=== PATIENT | female | born 1950 | race African-American/Black ===

== ENCOUNTER 2016-04-26 06:04 | Inpatient (IN) | payer OTHER ==
[2016-04-26] VITALS (24 sets, daily range): BP systolic 71–148; BP diastolic 39–72; PULSE 58–78; RESP 10–20; Ht 154.9 cm; Wt 55.9 kg
[~2016-04-26] VITALS: Ht 154.9 cm; Wt 55.9 kg
[~2016-04-26 06:04] MED LIST: ASPI-664 PO; BENA10TA48 PO; CARI350T29 PO; HYD25 PO
[2016-04-26] MEDS ORDERED: CEFAZOLIN 2 GM/50 ML (PMX) 50 ML IVPB ONE (06:30)
[2016-04-26] MEDS ORDERED: metroNIDAZOLE 500 MG/NS (PMX) 100 ML IVPB ONE ×2 (07:00→09:10)
[2016-04-26] MEDS ORDERED: D5-NS + KCL 20 MEQ 1,000 ML IV SCH (07:00)
[2016-04-26] MEDS ORDERED: METHYLENE BLUE 10 MG/ML VIAL ONE (07:12)
[2016-04-26] MEDS ORDERED: VASOPRESSIN 20 UNITS INJ ONE (07:12)
--- NOTE | 2016-04-26 07:13 | HPN ---
Date/Time of Note Date/Time of Note DATE: 04/26/16 TIME: 07:11 Interval H&P Admission Note Pt. seen H&P reviewed: No system changes JAMILAH FERRO MD Apr 26, 2016 07:12
[2016-04-26] MEDS ORDERED: ROCURONIUM 50 MG INJ ONE (07:51)
[2016-04-26] MEDS ORDERED: PROPOFOL 100 ML ONE (07:51)
[2016-04-26] MEDS ORDERED: MIDAZOLAM 1 MG/ML 2 ML INJ ONE (07:52)
[2016-04-26] MEDS ORDERED: HYDR-906 PO (08:02)
[2016-04-26] MEDS ORDERED: BACTDS PO (08:02)
[2016-04-26] MEDS ORDERED: QUET100T PO (08:02)
[2016-04-26] MEDS ORDERED: CLON-339 PO (08:02)
[2016-04-26] MEDS ORDERED: PHENYLephrine (100 MCG/ML) 5ML SYG ONE ×2 (08:27→09:09)
--- NOTE | 2016-04-26 08:29 | HP ---
Date/Time of Note Date/Time of Note DATE: 04/26/16 TIME: 08:29 Assessment/Plan VTE Prophylaxis VTE Prophylaxis Intervention: SCD's Lines/Catheters IV Catheter Type (from Nrs): Peripheral IV HPI/ROS Admit Date/Time Admit Date/Time Apr 26, 2016 at 06:04 Hx of Present Illness Jamilah Ferro M.D. 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 Past Medical History: HTN,Arthritis Surgical:Back Surgery Last Mammogram: 03/23/2016 Last Pap Smear: 03/11/2016 G 6 P 4 Ab 2 x 4 Medications: 04/15/16 aspirin 81 mg tablet,delayed release 1 tablet by mouth DAILY; stopped 2 wk ago 04/15/16 benazepril 20 mg-hydrochlorothiazide 25 mg tablet 1 tablet by mouth DAILY 04/15/16 clonidine HCl 0.1 mg tablet 1 tablet by mouth DAILY 04/15/16 losartan 25 mg tablet 1 tablet by mouth DAILY Flu no, declined, Pneumococcal no, declined Colonoscopy: never Allergies: No active allergies recorded Family History: Noncontributory Social History: Noncontributory Review of Systems: Negative except for above noted Physical Examination Vitals (04/15/2016): Weight 134, Height 62, BP 148/70, BMI 24.5. General: Alert. HEENT: Pupils are equal, round, reactive to light and accommodation. Neck: Supple with no masses of lymphadenopathy. Breast: Deferred due to recent examination and responsibility of primary care physician. Chest: Clear to auscultation and percussion with no rales, ronchi, or wheeze. Heart: Normal rhythm with no murmur. Abdominal exam: nontender, nondistended, no masses, no ascites. Pelvic exam: cervix 3 cm friable with no parametrial nodularity, no masses or cul-de-sac nodularity noted and no vaginal lesion Rectal: confirmatory with pelvic exam. Neurological: Grossly intact Assessment: Cervical cancer clinically stage IB2 Plan: Plan: Laparoscopic hysterectomy type 3 with BSO, pelvic and aortic LND. All risks and benefits of this procedure have been discussed in detail with the patient, as well as alternative treatment strategies and their implications. The patient is aware that there is some possibility of a blood transfusion and its associated risks and benefits. She wishes to proceed and gives her informed consent. Jamilah Ferro M.D. PMH/Family/Social Social History Smoking Status: Heavy tobacco smoker Exam/Review of Systems Vital Signs Vitals Vital Signs Date Time Temp Pulse Resp B/P Pulse Ox O2 Delivery O2 Flow Rate FiO2 04/26/16 07:51 97.6 75 18 109/48 97 Medications Medications Current Medications Potassium Chloride/Dextrose/ Sod Cl (D5-NS + KCl 20 Meq) 1,000 ml @ 100 mls/hr Q10H IV ; Start 04/26/16 at 07:00; Stop 04/26/16 at 16:59 JAMILAH FERRO MD Apr 26, 2016 08:29
[2016-04-26] MEDS ORDERED: THROMBIN 5000 UNIT VIAL ONE (09:00)
[2016-04-26] MEDS ORDERED: CEFAZOLIN 1 GM INJ ONE (09:10)
[2016-04-26] MEDS ORDERED: HETASTARCH 6% NACL 500 ML ONE (09:10)
[2016-04-26] MEDS ORDERED: morphine SULFATE/PF (10 MG/10 ML) INJ ONE (09:11)
[2016-04-26] MEDS ORDERED: ROPIVACAINE 0.2% 20 ML VIAL ONE (09:11)
[2016-04-26] MEDS ORDERED: ALBUMIN HUMAN 5% 250 ML IV PRN (10:30)
[2016-04-26] MEDS ORDERED: NALOXONE (0.4 MG/ML) INJ IV PRN ×2 (10:30→23:30)
[2016-04-26] MEDS ORDERED: ONDANSETRON 4 MG INJ IV PRN ×3 (10:30→23:30)
[2016-04-26] MEDS ORDERED: DIPHENHYDRAMINE 50 MG INJ IV PRN ×3 (10:30→23:30)
[2016-04-26] MEDS ORDERED: NALBUPHINE HCL (10 MG/1 ML) INJ IV PRN ×2 (10:30→23:30)
[2016-04-26] MEDS ORDERED: EPHEDrine SULFATE 50 MG/5 ML SYG IV PRN (10:30)
[2016-04-26] MEDS ORDERED: LABETALOL HCL 20MG INJ IV PRN (10:30)
[2016-04-26] MEDS ORDERED: HYDROmorphONE (0.2 MG/ML) 10ML SYG IV PRN ×3 (10:30)
[2016-04-26] MEDS ORDERED: morphine (1 MG/ML) 10ML SYRINGE IV PRN ×3 (10:30)
[2016-04-26] MEDS ORDERED: hydrALAzine 20 MG INJ IV PRN (10:30)
[2016-04-26] MEDS ORDERED: DEXAMETHASONE 4 MG/ML 1 ML INJ ONE (10:36)
[2016-04-26] MEDS ORDERED: FAMOTIDINE 20 MG INJ ONE (10:36)
[2016-04-26] MEDS ORDERED: ONDANSETRON 4 MG INJ ONE (10:36)
[2016-04-26] MEDS ORDERED: METOCLOPRAMIDE 10 MG INJ ONE (10:36)
[2016-04-26] MEDS: KETOROLAC 15 MG INJ IV SCH ×2 (13:30→19:30)
[2016-04-26] MEDS ORDERED: HYDROCODONE/APAP (5/325) TAB PO PRN (13:30)
[2016-04-26] MEDS: CEFAZOLIN 1 GM/50 ML (PMX) 50 ML IVPB SCH ×2 (14:54→22:53)
[2016-04-26] MEDS: D5-LR + KCL 20 MEQ 1,000 ML IV SCH ×2 (15:49→23:30)
[2016-04-26] MEDS ORDERED: HYDROmorphONE 1 MG/ML SYG IV PRN ×4 (17:00→23:30)
[2016-04-26] MEDS ORDERED: morphine 2 MG INJ IV PRN (17:00)
--- NOTE | 2016-04-26 20:50 | CONS ---
DATE OF ADMISSION: 04/26/2016 DATE OF CONSULTATION: 04/26/2016 REASON FOR CONSULTATION: Medical management. HISTORY OF PRESENT ILLNESS: The patient is a 66-year-old female with a history of hypertension, art hritis. The patient was recently diagnosed with cervical cancer and is now status post laparoscopic hysterectomy type 3 with bilateral salpingo-oophorectomy. Patient is lethargic at this time, as sh e is postoperative and is unable to provide any history. History is obtained from medical documenta tion. PAST MEDICAL HISTORY: As per HPI. HOME MEDICATIONS: 1. Aspirin. 2. Benazepril. 3. Soma. 4. Hydrochlorothiazide. 5. [place]. 6. Seroquel. 7. Bactrim. 8. Clonidine. ALLERGIES: NO KNOWN DRUG ALLERGIES. FAMILY HISTORY: Unknown. SOCIAL HISTORY: Unknown. REVIEW OF SYSTEMS: Cannot obtain, as patient is lethargic. PHYSICAL EXAMINATION: VITAL SIGNS: Temperature is 98.4, pulse 61, respiration is 18, BP is 111/51, saturation 99%. GENERAL: Lethargic. HEENT: Normocephalic, atraumatic. LUNGS: Clear to auscultation. CARDIOVASCULAR: Regular rate and rhythm. ABDOMEN: Soft. Nondistended. EXTREMITIES: No clubbing, cyanosis, or edema. LABORATORIES: Not available at this time. ASSESSMENT AND PLAN: 1. Several cancers, status post laparoscopic hysterectomy with bilateral salpingo-oophorectomy, pos top day #0. Patient is currently lethargic, with pain medications. 2. History of hypertension. The patient's blood pressure is currently low. We will hold all home medications at this time. We will resume in the a.m. if blood pressure continues to be elevated. 3. Osteoarthritis. Pain control. 4. Prophylaxis: Sequential compression devices. Dictated By: ALKA ROBLES MD BS/NTS Conf#: [id number] DID#: [id number]
[2016-04-26] MEDS ORDERED: NALOXONE (0.4 MG/ML) INJ ONE (23:00)
[2016-04-26] MEDS ORDERED: NALOXONE (0.4 MG/ML) INJ IV ONE (23:30)
[2016-04-27] VITALS (46 sets, daily range): BP systolic 72–156; BP diastolic 42–92; PULSE 70–98; RESP 9–31
[2016-04-27] MEDS ORDERED: SOD CHLORIDE 0.9% 250 ML IV ONE (00:10)
[2016-04-27] MEDS ORDERED: SOD CHLORIDE 0.9% 1,000 ML IV ONE (01:00)
[2016-04-27 01:07] LABS: AADO2 Arterial 60.4 mmHg (7.0-24.0); Allen Test ACCEPTAB; Arterial Base Excess -5.6 mmol/L (-3.0-3); Arterial COHb 0.3 % (0.0-3.0); Arterial Fraction of Oxyhgb 91.5 % (93.0-99.0); Arterial HCO3 21.1 mmol/L (22.0-26.0); Arterial MetHb 0.3 % (0.0-1.5); Arterial Total Hemglobin 8.5 g/dl (12.0-18.0); MODE NASAL CANNULA
[2016-04-27 01:22] LABS: BASOPHILS % 0.1 % (0.0-2.0); HEMOGLOBIN 7.8 g/dl (12.0-16.0); LYMPHOCYTES # 0.8 10^3/ul (0.8-2.9); LYMPHOCYTES % 12.1 % (15.0-51.0); MEAN CORPUSCULAR HEMOGLOBIN 33.6 pg (29.0-33.0); MEAN CORPUSCULAR HGB CONC 32.6 g/dl (32.0-37.0); MEAN CORPUSCULAR VOLUME 102.9 fl (82.0-101.0); MEAN PLATELET VOLUME 10.6 fl (7.4-10.4); MONOCYTE # 0.9 10^3/ul (0.3-0.9); MONOCYTES % 13.7 % (0.0-11.0); NEUTROPHIL # 4.8 10^3/ul (1.6-7.5); NEUTROPHILS % 74.1 % (39.0-77.0); PLATELET COUNT 157 10^3/UL (140-440); RED BLOOD COUNT 2.34 10^6/ul (4.20-5.40); RED CELL DISTRIBUTION WIDTH 14.1 % (11.5-14.5); UNCORRECTED WBC 6.4 10^3/ul (4.8-10.8); WHITE BLOOD COUNT 6.4 10^3/ul (4.8-10.8)
[2016-04-27 01:26] LABS: CONDITION 1; LH ANALYZER COMMENTS 1
[2016-04-27] MEDS: KETOROLAC 15 MG INJ IV SCH ×3 (01:30→12:55)
[2016-04-27] MEDS ORDERED: NORepinephrine 8MG/250 ML (PMX 250 ML IV SCH (01:50)
[2016-04-27] MEDS ORDERED: MIDODRINE 5 MG TAB PO ONE (02:00)
[2016-04-27] MEDS ORDERED: SOD CHLORIDE 0.9% 500 ML IV ONE (02:00)
--- NOTE | 2016-04-27 02:12 | RADRPT ---
PROCEDURE: Abdomen x-ray CLINICAL INDICATION: Hematoma. TECHNIQUE: 2 frontal views of the abdomen. COMPARISON: None. FINDINGS: Nonobstructive and nonspecific bowel gas pattern. Lung bases are clear. No unusual calcifications are identified over the abdomen. Discectomy with transpedicular screw and sari fixators seen bilaterally in the lower lumbar spine. IMPRESSION: Nonobstructive nonspecific bowel gas pattern of the abdomen. RPTAT: UU Physician Dash Date Time Electronically viewed and signed by Physician Dash on 04/27/2016 02:12 RS/
[2016-04-27] MEDS: D5-LR + KCL 20 MEQ 1,000 ML IV SCH ×2 (06:47→19:30)
[2016-04-27] MEDS: QUETIAPINE 100 MG TAB PO SCH (08:24)
[2016-04-27 09:56] LABS: BASOPHILS % 0.3 % (0.0-2.0); HEMATOCRIT 30.5 % (37.0-47.0); HEMOGLOBIN 10.2 g/dl (12.0-16.0); LYMPHOCYTES # 1.3 10^3/ul (0.8-2.9); LYMPHOCYTES % 12.2 % (15.0-51.0); MEAN CORPUSCULAR HEMOGLOBIN 32.3 pg (29.0-33.0); MEAN CORPUSCULAR HGB CONC 33.5 g/dl (32.0-37.0); MEAN CORPUSCULAR VOLUME 96.4 fl (82.0-101.0); MEAN PLATELET VOLUME 10.4 fl (7.4-10.4); MONOCYTE # 1.2 10^3/ul (0.3-0.9); NEUTROPHIL # 8.1 10^3/ul (1.6-7.5); NEUTROPHILS % 76.5 % (39.0-77.0); PLATELET COUNT 163 10^3/UL (140-440); RED BLOOD COUNT 3.17 10^6/ul (4.20-5.40); UNCORRECTED WBC 10.6 10^3/ul (4.8-10.8); WHITE BLOOD COUNT 10.6 10^3/ul (4.8-10.8)
[2016-04-27 10:03] LABS: CONDITION 1; LH ANALYZER COMMENTS 1
[2016-04-27 10:27] LABS: POTASSIUM 3.9 mmol/L (3.5-5.1)
[2016-04-27 10:29] LABS: CREATININE 1.68 mg/dl (0.44-1.00)
[2016-04-27 10:30] LABS: CALCIUM 8.4 mg/dl (8.4-10.2)
[2016-04-27] MEDS: ACETAMINOPHEN 325 MG TAB PO PRN (13:49)
[2016-04-27] MEDS: MULTIVITAMINS 10 ML, THIAMINE 100 MG, FOLIC ACID 1 MG in SOD CHLORIDE 0.9% 1,000 ML IVPB SCH (14:30)
--- NOTE | 2016-04-27 14:39 | PN ---
Date/Time of Note Date/Time of Note DATE: 04/27/16 TIME: 14:34 Assessment/Plan VTE Prophylaxis VTE Prophylaxis Intervention: SCD's Lines/Catheters IV Catheter Type (from Nrsg): Peripheral IV Urinary Cath still in place: Yes Assessment/Plan Chief Complaint/Hosp Course Cervical cancer IB2 Problems: Assessment/Plan A- improved. uncertain why H/H decreased yesterday but numerous possibilities; small vessel that opened and sealed, Toradol, coagulopathy etc. P- stat PT/INR, Toradol d/c earlier today and repeat labs Subjective 24 Hr Interval Summary Free Text/Dictation S- Responsive, minimal pain and uncertain of flatus. O- Resp- clear CVS- NSR Abd- Soft mild distension and discomfort Ext- NT minimal edema A- improved. uncertain why H/H decreased yesterday but numerous possibilities; small vessel that opened and sealed, Toradol, coagulopathy etc. P- stat PT/INR, Toradol d/c earlier today and repeat labs Exam/Review of Systems Vital Signs Vitals Vital Signs Date Time Temp Pulse Resp B/P Pulse Ox O2 Delivery O2 Flow Rate FiO2 04/27/16 13:00 94 15 116/60 97 Nasal Cannula 04/27/16 12:00 99.6 04/27/16 08:15 2.0 Intake and Output 04/26/16 04/26/16 04/27/16 15:00 23:00 07:00 Intake Total 2720 ml 390 ml 500.000 ml Output Total 300 ml 450 ml 370 ml Balance 2420 ml -60 ml 130.000 ml Results Result Diagram: 04/27/1615 04/27/16 0915 Results 24 hrs Laboratory Tests Test 04/27/16 00:39 04/27/16 01:05 04/27/16 09:15 Arterial Blood HCO3 21.1 L Arterial Blood Base Excess -5.6 L Arterial Blood Oxygen Saturation 92.1 L Thaddeus Test ACCEPTAB Arterial Blood Gas Puncture Site Right Radial Arterial Blood Carboxyhemoglobin 0.3 Arterial Blood Date Drawn 04/27/2016 1:00:18 AM Arterial Blood Methemoglobin 0.3 Arterial Blood pCO2 (Temp correct) 47.4 H Arterial Blood pH (Temp corrected) 7.266 *L Arterial Blood pO2 (Temp corrected) 76.1 L Blood Gas A-a O2 Differential 60.4 H Blood Gas Critical Value Read Back MARTA FELIPE Blood Gas Modality NASAL CANNULA Blood Gas Notified Time 04/27/2016 1:06:57 AM Blood Gas Notified Whom JENNIFER Blood Gas Specimen Source Blood arterial Blood Gas Temperature 37.0 FiO2 27.0 Oxyhemoglobin Percent 91.5 L Total Hemoglobin 8.5 L Basophils # 0.0 0.0 Basophils % 0.1 0.3 Blood Morphology Comment Eosinophils # 0.0 0.0 Eosinophils % 0.0 0.0 Hematocrit 24.0 #L 30.5 #L Hemoglobin 7.8 #L 10.2 #L Lymphocytes # 0.8 1.3 Lymphocytes % 12.1 L 12.2 L Mean Corpuscular Hemoglobin 33.6 H 32.3 Mean Corpuscular Hemoglobin Concent 32.6 33.5 Mean Corpuscular Volume 102.9 H 96.4 Mean Platelet Volume 10.6 H 10.4 Monocytes # 0.9 1.2 H Monocytes % 13.7 H 11.0 Neutrophils # 4.8 8.1 H Neutrophils % 74.1 76.5 Nucleated Red Blood Cells # 0.0 0.0 Nucleated Red Blood Cells % 0.0 0.0 Platelet Count 157 163 Red Blood Count 2.34 #L 3.17 #L Red Cell Distribution Width 14.1 17.0 #H White Blood Count 6.4 10.6 # Anion Gap 15 Blood Urea Nitrogen 17 Calcium Level 8.4 Carbon Dioxide Level 18 L Chloride Level 111 H Creatinine 1.68 H Glucose Level 118 Potassium Level 3.9 Sodium Level 140 Medications Medications Current Medications Hydromorphone HCl (Dilaudid) 0.2 mg Q2H PRN IV PAIN LEVEL 1-5; Start 04/26/16 at 17:00 Morphine Sulfate (morphine) 4 mg Q2H PRN IV PAIN LEVEL 6-10; Start 04/26/16 at 17:00 Morphine Sulfate 2 mg 2 mg Q4H PRN IV PAIN; Start 04/26/16 at 13:30 Potassium Cl/ Dextrose/Lact Ringer's (D5-Lr + KCl 20 Meq) 1,000 ml @ 100 mls/ hr Q10H IV Last administered on 04/27/16 06:47; Admin Dose 100 MLS/HR; Start 04/26/16 at 13:30 Quetiapine Fumarate (Seroquel) 100 mg DAILY PO Last administered on 04/27/16 08:24; Admin Dose 100 MG; Start 04/27/16 at 09:00 Diphenhydramine HCl (Benadryl) 25 mg Q4H PRN IV PRURITUS; Start 04/26/16 at 23: 30 Nalbuphine HCl (Nubain) 10 mg Q4H PRN IV PRURITUS; Start 04/26/16 at 23:30 Ondansetron HCl (Zofran Inj) 4 mg Q6H PRN IV NAUSEA AND/OR VOMITING; Start at 23:30 Naloxone HCl 0.2 mg 0.2 mg Q2M PRN IV FOR RESP RATE 8 OR LESS; Start 04/26/16 at 23:30 Norepinephrine/ Dextrose (Levophed/D5W) 500 ml @ 1.87 mls/hr TITRATE IV ; Start 04/27/16 at 07:00 Acetaminophen 650 mg 650 mg Q6H PRN PO PAIN AND OR ELEVATED TEMP Last administered on 04/27/16 13:49; Admin Dose 650 MG; Start 04/27/16 at 13:00 Multivitamins/ Thiamine HCl/ Folic Acid/Sodium Chloride (Mvi-12 Adult/ Vitamin B1/Folic Acid/NS) 1,011.2 ml @ 60 mls/hr DAILY@09 IVPB Last administered on 14:30; Admin Dose 60 MLS/HR; Start 04/27/16 at 15:00 JAMILAH FERRO MD Apr 27, 2016 14:39
[2016-04-27 15:11] LABS: BASOPHILS % 0.1 % (0.0-2.0); HEMATOCRIT 30.3 % (37.0-47.0); HEMOGLOBIN 10.3 g/dl (12.0-16.0); LYMPHOCYTES # 1.4 10^3/ul (0.8-2.9); LYMPHOCYTES % 13.9 % (15.0-51.0); MEAN CORPUSCULAR HEMOGLOBIN 32.4 pg (29.0-33.0); MEAN CORPUSCULAR HGB CONC 33.9 g/dl (32.0-37.0); MEAN CORPUSCULAR VOLUME 95.6 fl (82.0-101.0); MEAN PLATELET VOLUME 9.5 fl (7.4-10.4); MONOCYTE # 1.2 10^3/ul (0.3-0.9); MONOCYTES % 11.1 % (0.0-11.0); NEUTROPHIL # 7.8 10^3/ul (1.6-7.5); NEUTROPHILS % 74.9 % (39.0-77.0); PLATELET COUNT 140 10^3/UL (140-440); RED BLOOD COUNT 3.17 10^6/ul (4.20-5.40); RED CELL DISTRIBUTION WIDTH 16.9 % (11.5-14.5); UNCORRECTED WBC 10.4 10^3/ul (4.8-10.8); WHITE BLOOD COUNT 10.4 10^3/ul (4.8-10.8)
[2016-04-27 15:15] LABS: CONDITION 1; LH ANALYZER COMMENTS 1
[2016-04-27 15:37] LABS: ALBUMIN 2.1 g/dl (3.3-4.9)
[2016-04-27 15:40] LABS: CREATININE 1.27 mg/dl (0.44-1.00); INR 1.34; PROTIME 16.7 Sec (12.2-14.2); PT RATIO 1.3
[2016-04-27 15:41] LABS: ALBUMIN/GLOBULIN RATIO 0.75; BILIRUBIN,INDIRECT 0.2 mg/dl (0-1.1); BILIRUBIN,TOTAL 0.2 mg/dl (0.2-1.3); CALCIUM 8.2 mg/dl (8.4-10.2); TOTAL PROTEIN 4.9 g/dl (6.1-8.1)
--- NOTE | 2016-04-27 16:04 | PN ---
Date/Time of Note Date/Time of Note DATE: 04/27/16 TIME: 16:01 Assessment/Plan VTE Prophylaxis VTE Prophylaxis Intervention: SCD's Lines/Catheters IV Catheter Type (from Nrs): Peripheral IV Assessment/Plan Chief Complaint/Hosp Course 1. Cervical cancer status post laparoscopic hysterectomy with bilateral salpingo -oophorectomy 2. History of hypertension -BP Low, hold home Rx, was on pressors but now off 3. AMS 2/2 EtOH withdrawl vs pain Rx -Banana bag 4. Prophylaxis: Sequential compression devices. Problems: Subjective 24 Hr Interval Summary Constitutional: disoriented Exam/Review of Systems Vital Signs Vitals Vital Signs Date Time Temp Pulse Resp B/P Pulse Ox O2 Delivery O2 Flow Rate FiO2 04/27/16 15:00 99.0 82 22 116/61 98 Nasal Cannula 04/27/16 08:15 2.0 Intake and Output 04/26/16 04/26/16 04/27/16 14:59 22:59 06:59 Intake Total 2720 ml 390 ml 425.000 ml Output Total 300 ml 450 ml 350 ml Balance 2420 ml -60 ml 75.000 ml Exam Psych: confusion Respiratory: clear to auscultation Cardiovascular: regular rate and rhythm Gastrointestinal: soft, No distended Musculoskeletal: nl extremities to inspection Results Result Diagram: 04/27/16 1500 04/27/16 1500 Results 24 hrs Laboratory Tests Test 04/27/16 00:39 04/27/16 01:05 04/27/16 09:15 04/27/16 15:00 Arterial Blood HCO3 21.1 L Arterial Blood Base Excess -5.6 L Arterial Blood Oxygen Saturation 92.1 L Thaddeus Test ACCEPTAB Arterial Blood Gas Puncture Site Right Radial Arterial Blood Carboxyhemoglobin 0.3 Arterial Blood Date Drawn 04/27/2016 1:00:18 AM Arterial Blood Methemoglobin 0.3 Arterial Blood pCO2 (Temp correct) 47.4 H Arterial Blood pH (Temp corrected) 7.266 *L Arterial Blood pO2 (Temp corrected) 76.1 L Blood Gas A-a O2 Differential 60.4 H Blood Gas Critical Value Read Back MARTA FELIPE Blood Gas Modality NASAL CANNULA Blood Gas Notified Time 04/27/2016 1:06:57 AM Blood Gas Notified Yadiel RODRIGUEZ Blood Gas Specimen Source Blood arterial Blood Gas Temperature 37.0 FiO2 27.0 Oxyhemoglobin Percent 91.5 L Total Hemoglobin 8.5 L Basophils # 0.0 0.0 0.0 Basophils % 0.1 0.3 0.1 Blood Morphology Comment Eosinophils # 0.0 0.0 0.0 Eosinophils % 0.0 0.0 0.0 Hematocrit 24.0 #L 30.5 #L 30.3 L Hemoglobin 7.8 #L 10.2 #L 10.3 L Lymphocytes # 0.8 1.3 1.4 Lymphocytes % 12.1 L 12.2 L 13.9 L Mean Corpuscular Hemoglobin 33.6 H 32.3 32.4 Mean Corpuscular Hemoglobin Concent 32.6 33.5 33.9 Mean Corpuscular Volume 102.9 H 96.4 95.6 Mean Platelet Volume 10.6 H 10.4 9.5 Monocytes # 0.9 1.2 H 1.2 H Monocytes % 13.7 H 11.0 11.1 H Neutrophils # 4.8 8.1 H 7.8 H Neutrophils % 74.1 76.5 74.9 Nucleated Red Blood Cells # 0.0 0.0 0.0 Nucleated Red Blood Cells % 0.0 0.0 0.0 Platelet Count 157 163 140 Red Blood Count 2.34 #L 3.17 #L 3.17 L Red Cell Distribution Width 14.1 17.0 #H 16.9 H White Blood Count 6.4 10.6 # 10.4 Anion Gap 15 12 Blood Urea Nitrogen 17 15 Calcium Level 8.4 8.2 L Carbon Dioxide Level 18 L 21 Chloride Level 111 H 113 H Creatinine 1.68 H 1.27 H Glucose Level 118 101 Potassium Level 3.9 4.0 Sodium Level 140 142 Alanine Aminotransferase (ALT/SGPT) 41 Albumin 2.1 L Albumin/Globulin Ratio 0.75 Alkaline Phosphatase 43 Aspartate Amino Transf (AST/SGOT) 139 H Direct Bilirubin 0.00 Globulin 2.80 INR International Normalized Ratio 1.34 Indirect Bilirubin 0.2 Prothrombin Time 16.7 H Prothrombin Time Ratio 1.3 Total Bilirubin 0.2 Total Protein 4.9 L Medications Medications Current Medications Hydromorphone HCl (Dilaudid) 0.2 mg Q2H PRN IV PAIN LEVEL 1-5; Start 04/26/16 at 17:00 Morphine Sulfate (morphine) 4 mg Q2H PRN IV PAIN LEVEL 6-10; Start 04/26/16 at 17:00 Morphine Sulfate 2 mg 2 mg Q4H PRN IV PAIN; Start 04/26/16 at 13:30 Potassium Cl/ Dextrose/Lact Ringer's (D5-Lr + KCl 20 Meq) 1,000 ml @ 100 mls/ hr Q10H IV Last administered on 04/27/16 06:47; Admin Dose 100 MLS/HR; Start 04/26/16 at 13:30 Quetiapine Fumarate (Seroquel) 100 mg DAILY PO Last administered on 04/27/16 08:24; Admin Dose 100 MG; Start 04/27/16 at 09:00 Diphenhydramine HCl (Benadryl) 25 mg Q4H PRN IV PRURITUS; Start 04/26/16 at 23: 30 Nalbuphine HCl (Nubain) 10 mg Q4H PRN IV PRURITUS; Start 04/26/16 at 23:30 Ondansetron HCl (Zofran Inj) 4 mg Q6H PRN IV NAUSEA AND/OR VOMITING; Start at 23:30 Naloxone HCl 0.2 mg 0.2 mg Q2M PRN IV FOR RESP RATE 8 OR LESS; Start 04/26/16 at 23:30 Norepinephrine/ Dextrose (Levophed/D5W) 500 ml @ 1.87 mls/hr TITRATE IV ; Start 04/27/16 at 07:00 Acetaminophen 650 mg 650 mg Q6H PRN PO PAIN AND OR ELEVATED TEMP Last administered on 04/27/16 13:49; Admin Dose 650 MG; Start 04/27/16 at 13:00 Multivitamins/ Thiamine HCl/ Folic Acid/Sodium Chloride (Mvi-12 Adult/ Vitamin B1/Folic Acid/NS) 1,011.2 ml @ 60 mls/hr DAILY@09 IVPB Last administered on 14:30; Admin Dose 60 MLS/HR; Start 04/27/16 at 15:00 ALKA ROBLES Apr 27, 2016 16:04
[2016-04-27] MEDS: morphine 2 MG INJ IV PRN ×2 (17:23→21:34)
[2016-04-28] VITALS (35 sets, daily range): BP systolic 94–194; BP diastolic 65–120; PULSE 76–116; RESP 10–43
[2016-04-28] MEDS: morphine 4 MG/ML VIAL IV PRN ×3 (01:46→07:37)
[2016-04-28] MEDS ORDERED: MAGNESIUM HYDROXIDE 30ML CUP PO ONE (03:30)
[2016-04-28] MEDS ORDERED: hydrALAzine 20 MG INJ IV ONE (05:30)
[2016-04-28 05:54] LABS: BASOPHILS % 0.3 % (0.0-2.0); EOSINOPHILS % 0.1 % (0.0-7.0); HEMOGLOBIN 10.6 g/dl (12.0-16.0); LYMPHOCYTES # 1.6 10^3/ul (0.8-2.9); LYMPHOCYTES % 12.6 % (15.0-51.0); MEAN CORPUSCULAR HEMOGLOBIN 32.6 pg (29.0-33.0); MEAN CORPUSCULAR HGB CONC 34.2 g/dl (32.0-37.0); MEAN CORPUSCULAR VOLUME 95.2 fl (82.0-101.0); MEAN PLATELET VOLUME 10.8 fl (7.4-10.4); MONOCYTES % 7.9 % (0.0-11.0); NEUTROPHIL # 10.3 10^3/ul (1.6-7.5); NEUTROPHILS % 79.1 % (39.0-77.0); PLATELET COUNT 147 10^3/UL (140-440); RED BLOOD COUNT 3.26 10^6/ul (4.20-5.40); RED CELL DISTRIBUTION WIDTH 16.5 % (11.5-14.5)
[2016-04-28 05:58] LABS: POTASSIUM 3.5 mmol/L (3.5-5.1)
[2016-04-28 06:01] LABS: CALCIUM 8.7 mg/dl (8.4-10.2); CREATININE 0.74 mg/dl (0.44-1.00)
[2016-04-28 06:02] LABS: MAGNESIUM 1.1 mg/dl (1.7-2.5)
[2016-04-28 06:03] LABS: CONDITION 1; LH ANALYZER COMMENTS 1
[2016-04-28] MEDS: hydrALAzine 20 MG INJ IV PRN ×3 (06:55→23:35)
[2016-04-28] MEDS ORDERED: MAGNESIUM HYDROXIDE 30ML CUP PO PRN (07:00)
[2016-04-28] MEDS ORDERED: BISACODYL (EC) 5 MG TAB PO PRN (07:00)
[2016-04-28] MEDS: D5-LR + KCL 20 MEQ 1,000 ML IV SCH ×3 (07:40→15:23)
[2016-04-28] MEDS: QUETIAPINE 100 MG TAB PO SCH (08:31)
[2016-04-28] MEDS: MULTIVITAMINS 10 ML, THIAMINE 100 MG, FOLIC ACID 1 MG in SOD CHLORIDE 0.9% 1,000 ML IVPB SCH (08:34)
[2016-04-28] MEDS: LORAZEPAM 2 MG INJ IV PRN ×7 (09:18→23:34)
--- NOTE | 2016-04-28 09:38 | RADRPT ---
PROCEDURE: XR Abdomen. CLINICAL INDICATION: Abdominal pain TECHNIQUE: AP abdomen x-ray. COMPARISON: None FINDINGS: The bowel gas pattern is normal. There is no evidence of obstruction. There are no findings of free air or perforation. There are no abnormal calcifications overlying the urinary tracts. The patient is status post cholecystectomy. There is fusion hardware in the L4 and L5. There are al so surgical clips in the pelvis. IMPRESSION: Unremarkable exam. No findings of bowel obstruction or perforation. Status post cholecystectomy, l ower lumbar fusion, and surgical clips in the pelvis. RPTAT: QQ .Allie Bear MD, MD Date Time Electronically viewed and signed by .Allie Bear MD, MD on 04/28/2016 09:37 .F/
[2016-04-28] MEDS: LABETALOL HCL 20MG INJ IV PRN ×4 (10:33→22:07)
--- NOTE | 2016-04-28 11:10 | CONS ---
Date/Time of Note Date/Time of Note DATE: 04/28/16 TIME: 11:07 Consultation Date/Type/Reason Admit Date/Time Apr 26, 2016 at 06:04 Initial Consult Date 04/26/16 Type of Consultation: Anesthesia Reason for Consultation Laparoscopic Hysterectomy and BSO 24 HR Interval Summary Free Text/Dictation HISTORY OF PRESENT ILLNESS: The patient is a 66-year-old female with a history of hypertension, arthritis. The patient was recently diagnosed with cervical cancer and is now status post laparoscopic hysterectomy type 3 with bilateral salpingo-oophorectomy. Patient is lethargic at this time, as she is postoperative and is unable to provide any history. History is obtained from medical documentation. PAST MEDICAL HISTORY: As per HPI. HOME MEDICATIONS: 1. Aspirin. 2. Benazepril. 3. Soma. 4. Hydrochlorothiazide. 5. [place]. 6. Seroquel. 7. Bactrim. 8. Clonidine. POD#2 patient went under General and Epidural anesthesia for the surgery, Epidural Duramorph was given to mange her pain postoperatively, she is doing well. Pain is well controlled. Vital signs are stable and she is afebrile. no sensory and motor deficit. No itching or nausea or vomiting reported. No apnea reported. She will be followed up by her primary team. Exam/Review of Systems Vital Signs Vitals Vital Signs Date Time Temp Pulse Resp B/P Pulse Ox O2 Delivery O2 Flow Rate FiO2 04/28/16 10:00 99.5 97 39 159/70 100 Nasal Cannula 04/28/16 07:40 2.0 Intake and Output 04/27/16 04/27/16 04/28/16 15:00 23:00 07:00 Intake Total 479.375 ml 400 ml 630 ml Output Total 240 ml 560 ml 825 ml Balance 239.375 ml -160 ml -195 ml Results Result Diagram: 04/28/16 0530 04/28/16 0530 Results 24 hrs Laboratory Tests Test 04/27/16 15:00 04/28/16 05:30 Alanine Aminotransferase (ALT/SGPT) 41 Albumin 2.1 L Albumin/Globulin Ratio 0.75 Alkaline Phosphatase 43 Anion Gap 12 13 Aspartate Amino Transf (AST/SGOT) 139 H Basophils # 0.0 0.0 Basophils % 0.1 0.3 Blood Morphology Comment Blood Urea Nitrogen 15 11 Calcium Level 8.2 L 8.7 Carbon Dioxide Level 21 23 Chloride Level 113 H 109 Creatinine 1.27 H 0.74 Direct Bilirubin 0.00 Eosinophils # 0.0 0.0 Eosinophils % 0.0 0.1 Globulin 2.80 Glucose Level 101 82 Hematocrit 30.3 L 31.0 L Hemoglobin 10.3 L 10.6 L INR International Normalized Ratio 1.34 Indirect Bilirubin 0.2 Lymphocytes # 1.4 1.6 Lymphocytes % 13.9 L 12.6 L Mean Corpuscular Hemoglobin 32.4 32.6 Mean Corpuscular Hemoglobin Concent 33.9 34.2 Mean Corpuscular Volume 95.6 95.2 Mean Platelet Volume 9.5 10.8 H Monocytes # 1.2 H 1.0 H Monocytes % 11.1 H 7.9 Neutrophils # 7.8 H 10.3 H Neutrophils % 74.9 79.1 H Nucleated Red Blood Cells # 0.0 0.0 Nucleated Red Blood Cells % 0.0 0.0 Platelet Count 140 147 Potassium Level 4.0 3.5 Prothrombin Time 16.7 H Prothrombin Time Ratio 1.3 Red Blood Count 3.17 L 3.26 L Red Cell Distribution Width 16.9 H 16.5 H Sodium Level 142 141 Total Bilirubin 0.2 Total Protein 4.9 L White Blood Count 10.4 13.0 #H Magnesium Level 1.1 L Medications Medications Current Medications Hydromorphone HCl (Dilaudid) 0.2 mg Q2H PRN IV PAIN LEVEL 1-5; Start 04/26/16 at 17:00 Morphine Sulfate (morphine) 4 mg Q2H PRN IV PAIN LEVEL 6-10 Last administered on 04/28/16 07:37; Admin Dose 4 MG; Start 04/26/16 at 17:00 Morphine Sulfate 2 mg 2 mg Q4H PRN IV PAIN Last administered on 04/27/16 21:34 ; Admin Dose 2 MG; Start 04/26/16 at 13:30 Potassium Cl/ Dextrose/Lact Ringer's (D5-Lr + KCl 20 Meq) 1,000 ml @ 100 mls/ hr Q10H IV Last administered on 04/28/16 10:39; Admin Dose 100 MLS/HR; Start 04/26/16 at 13:30 Quetiapine Fumarate (Seroquel) 100 mg DAILY PO Last administered on 04/28/16 08:31; Admin Dose 100 MG; Start 04/27/16 at 09:00 Diphenhydramine HCl (Benadryl) 25 mg Q4H PRN IV PRURITUS; Start 04/26/16 at 23: 30 Nalbuphine HCl (Nubain) 10 mg Q4H PRN IV PRURITUS; Start 04/26/16 at 23:30 Ondansetron HCl (Zofran Inj) 4 mg Q6H PRN IV NAUSEA AND/OR VOMITING; Start at 23:30 Naloxone HCl 0.2 mg 0.2 mg Q2M PRN IV FOR RESP RATE 8 OR LESS; Start 04/26/16 at 23:30 Norepinephrine/ Dextrose (Levophed/D5W) 500 ml @ 1.87 mls/hr TITRATE IV ; Start 04/27/16 at 07:00 Acetaminophen 650 mg 650 mg Q6H PRN PO PAIN AND OR ELEVATED TEMP Last administered on 04/27/16 13:49; Admin Dose 650 MG; Start 04/27/16 at 13:00 Multivitamins/ Thiamine HCl/ Folic Acid/Sodium Chloride (Mvi-12 Adult/ Vitamin B1/Folic Acid/NS) 1,011.2 ml @ 60 mls/hr DAILY@09 IVPB Last administered on 14:30; Admin Dose 60 MLS/HR; Start 04/27/16 at 15:00 Hydralazine HCl (Apresoline) 10 mg Q4H PRN IV SBP > 160 Last administered on 06:55; Admin Dose 10 MG; Start 04/28/16 at 05:30 Bisacodyl (Dulcolax) 10 mg DAILY PRN PO CONSTIPATION Last administered on 06:59; Admin Dose 10 MG; Start 04/28/16 at 07:00 Magnesium Hydroxide (Milk Of Mag) 30 ml DAILY PRN PO CONSTIPATION; Start at 07:00 Lorazepam (Ativan) 1 mg Q2H PRN IV ANXIETY Last administered on 04/28/16 09:18 ; Admin Dose 1 MG; Start 04/28/16 at 09:00 Labetalol HCl (Labetalol) 20 mg Q2H PRN IV SBP >170 Last administered on 10:33; Admin Dose 20 MG; Start 04/28/16 at 09:00 STONEY PÉREZ MD Apr 28, 2016 11:10
[2016-04-28] MEDS: ACETAMINOPHEN 325 MG TAB PO PRN (11:41)
--- NOTE | 2016-04-28 12:22 | PN ---
Date/Time of Note Date/Time of Note DATE: 04/28/16 TIME: 12:18 Assessment/Plan VTE Prophylaxis VTE Prophylaxis Intervention: SCD's Lines/Catheters IV [facility]ter Type (from [facility]): Peripheral IV Assessment/Plan Chief Complaint/Hosp Course 1. Cervical cancer status post laparoscopic hysterectomy with bilateral salpingo -oophorectomy 2. History of hypertension -BP Low, hold home Rx, was on pressors but now off 3. AMS 2/2 EtOH withdrawl -Banana bag, Ativan PRN 4. SIRS 2/2 EtOH withdrawl vs infection -Blood Cx x 2 -KUB is nl, Ucx is negative -CXR to R/O PNA Prophylaxis: Sequential compression devices. Problems: Subjective 24 Hr Interval Summary Constitutional: disoriented Exam/Review of Systems Vital Signs Vitals Vital Signs Date Time Temp Pulse Resp B/P Pulse Ox O2 Delivery O2 Flow Rate FiO2 04/28/16 11:30 101.0 92 39 167/76 100 Nasal Cannula 04/28/16 07:40 2.0 Intake and Output 04/27/16 04/27/16 04/28/16 15:00 23:00 07:00 Intake Total 479.375 ml 400 ml 630 ml Output Total 240 ml 560 ml 825 ml Balance 239.375 ml -160 ml -195 ml Exam Psych: confusion Respiratory: clear to auscultation Cardiovascular: regular rate and rhythm Gastrointestinal: soft, No distended Musculoskeletal: nl extremities to inspection Results Result Diagram: 04/28/16 0530 04/28/16 0530 Results 24 hrs Laboratory Tests Test 04/27/16 15:00 04/28/16 05:30 Alanine Aminotransferase (ALT/SGPT) 41 Albumin 2.1 L Albumin/Globulin Ratio 0.75 Alkaline Phosphatase 43 Anion Gap 12 13 Aspartate Amino Transf (AST/SGOT) 139 H Basophils # 0.0 0.0 Basophils % 0.1 0.3 Blood Morphology Comment Blood Urea Nitrogen 15 11 Calcium Level 8.2 L 8.7 Carbon Dioxide Level 21 23 Chloride Level 113 H 109 Creatinine 1.27 H 0.74 Direct Bilirubin 0.00 Eosinophils # 0.0 0.0 Eosinophils % 0.0 0.1 Globulin 2.80 Glucose Level 101 82 Hematocrit 30.3 L 31.0 L Hemoglobin 10.3 L 10.6 L INR International Normalized Ratio 1.34 Indirect Bilirubin 0.2 Lymphocytes # 1.4 1.6 Lymphocytes % 13.9 L 12.6 L Mean Corpuscular Hemoglobin 32.4 32.6 Mean Corpuscular Hemoglobin Concent 33.9 34.2 Mean Corpuscular Volume 95.6 95.2 Mean Platelet Volume 9.5 10.8 H Monocytes # 1.2 H 1.0 H Monocytes % 11.1 H 7.9 Neutrophils # 7.8 H 10.3 H Neutrophils % 74.9 79.1 H Nucleated Red Blood Cells # 0.0 0.0 Nucleated Red Blood Cells % 0.0 0.0 Platelet Count 140 147 Potassium Level 4.0 3.5 Prothrombin Time 16.7 H Prothrombin Time Ratio 1.3 Red Blood Count 3.17 L 3.26 L Red Cell Distribution Width 16.9 H 16.5 H Sodium Level 142 141 Total Bilirubin 0.2 Total Protein 4.9 L White Blood Count 10.4 13.0 #H Magnesium Level 1.1 L Medications Medications Current Medications Hydromorphone HCl (Dilaudid) 0.2 mg Q2H PRN IV PAIN LEVEL 1-5; Start 04/26/16 at 17:00 Morphine Sulfate (morphine) 4 mg Q2H PRN IV PAIN LEVEL 6-10 Last administered on 04/28/16 07:37; Admin Dose 4 MG; Start 04/26/16 at 17:00 Morphine Sulfate 2 mg 2 mg Q4H PRN IV PAIN Last administered on 04/27/16 21:34 ; Admin Dose 2 MG; Start 04/26/16 at 13:30 Potassium Cl/ Dextrose/Lact Ringer's (D5-Lr + KCl 20 Meq) 1,000 ml @ 100 mls/ hr Q10H IV Last administered on 04/28/16 10:39; Admin Dose 100 MLS/HR; Start 04/26/16 at 13:30 Quetiapine Fumarate (Seroquel) 100 mg DAILY PO Last administered on 04/28/16 08:31; Admin Dose 100 MG; Start 04/27/16 at 09:00 Diphenhydramine HCl (Benadryl) 25 mg Q4H PRN IV PRURITUS; Start 04/26/16 at 23: 30 Nalbuphine HCl (Nubain) 10 mg Q4H PRN IV PRURITUS; Start 04/26/16 at 23:30 Ondansetron HCl (Zofran Inj) 4 mg Q6H PRN IV NAUSEA AND/OR VOMITING; Start at 23:30 Naloxone HCl 0.2 mg 0.2 mg Q2M PRN IV FOR RESP RATE 8 OR LESS; Start 04/26/16 at 23:30 Norepinephrine/ Dextrose (Levophed/D5W) 500 ml @ 1.87 mls/hr TITRATE IV ; Start 04/27/16 at 07:00 Acetaminophen 650 mg 650 mg Q6H PRN PO PAIN AND OR ELEVATED TEMP Last administered on 04/28/16 11:41; Admin Dose 650 MG; Start 04/27/16 at 13:00 Multivitamins/ Thiamine HCl/ Folic Acid/Sodium Chloride (Mvi-12 Adult/ Vitamin B1/Folic Acid/NS) 1,011.2 ml @ 60 mls/hr DAILY@09 IVPB Last administered on 14:30; Admin Dose 60 MLS/HR; Start 04/27/16 at 15:00 Hydralazine HCl (Apresoline) 10 mg Q4H PRN IV SBP > 160 Last administered on 06:55; Admin Dose 10 MG; Start 04/28/16 at 05:30 Bisacodyl (Dulcolax) 10 mg DAILY PRN PO CONSTIPATION Last administered on 06:59; Admin Dose 10 MG; Start 04/28/16 at 07:00 Magnesium Hydroxide (Milk Of Mag) 30 ml DAILY PRN PO CONSTIPATION; Start at 07:00 Lorazepam (Ativan) 1 mg Q2H PRN IV ANXIETY Last administered on 04/28/16 11:35 ; Admin Dose 1 MG; Start 04/28/16 at 09:00 Labetalol HCl (Labetalol) 20 mg Q2H PRN IV SBP >170 Last administered on 10:33; Admin Dose 20 MG; Start 04/28/16 at 09:00 ALKA ROBLES Apr 28, 2016 12:22
[2016-04-28] MEDS ORDERED: MAGNESIUM SULFATE 4 GM/100 ML 100 ML IVPB ONE (12:30)
--- NOTE | 2016-04-28 13:37 | RADRPT ---
PROCEDURE: XR Chest AP portable CLINICAL INDICATION: Evaluate for pneumonia TECHNIQUE: An AP portable radiograph of the chest was submitted. COMPARISON: 12/26/2014 FINDINGS: Support Hardware: None Cardiovascular: The heart is mildly enlarged and the pulmonary vasculature is congested. . Lung Minor: Interstitial infiltrates extend from the parietal regions bilaterally suspicious for in terstitial edema but is exaggerated by poor inspiratory effort. Pleural Spaces: No pneumothorax or pleural effusion is identified. Osseous Structures: Moderate diffuse degenerative spine changes are noted. Soft Tissues: The soft tissues appear unremarkable. IMPRESSION: 1. The heart size has increased and there is no mild cardiomegaly with development of pulmonary vas cular congestion. 2. Pulmonary interstitial edema exaggerated by suboptimal inspiration. 3. Moderate degenerative spine changes are again noted. Physician Moi Date Time Electronically viewed and signed by Physician Moi on 04/28/2016 13:37 /
--- NOTE | 2016-04-28 19:05 | OPR ---
Date/Time of Note Date/Time of Note DATE: 04/28/16 TIME: 19:05 Operative Report Free Text/Dictation 2 OPERATIVE REPORT [facility] Name: Adry [facility]kins [facility] Date: 04/26/16 Preoperative Diagnosis: Cervical cancer stage IB2 Postoperative Diagnosis: Pathology pending Procedures: 1-Laparoscopic Type 3 Radical Hysterectomy / BSO / Pelvic Lymph node dissection 2. Aortic Lymph node dissection Surgeon: Dr. Ferro Project Program Manager: Dr. Davis Anesthesia: General with regional Indications for Procedure: This 66- year old patient had a grade 3 squamous cell carcinoma preoperatively diagnosed to be cervical cancer without evidence of metastatic disease preoperatively and after discussions of options with risks and benefits it was determined that a laparoscopic type 3 hysterectomy with bilateral salpingoophorectomy and pelvic/aortic lymph node dissection would be completed for the purposes of treatment and possibly planning additional adjuvant therapy. Intraoperative Findings and Summary of Procedure: After placing the Trocars and exploration we noted a 3-cm cervix with no metastatic disease or parametrial involvement with significant adhesions of the adnexia to the sidewalls The Type 3 TLH/BSO was then performed without incident but required a ureteral dissection due to anatomic issues of the adnexia adherent to the sidewalls with sidewall inflammation, with the laparoscopic LND being subsequently performed with a finding of grossly negative nodes pathology pending. Findings and Procedure: Name: Adry Elkins [facility] After being prepped and draped in the usual manner an EEA sizer and pneumo- occluder was inserted vaginally and placed against the cervix after which a 5- millimeter trocar was placed cephlad to the umbilicus without incident and the abdomen was insufflated to 15 mm Hg. Subsequently, we insufflated and placed an additional 5 millimeter trocar cephlad to the umbilicus, two 12 millimeter trocars laterally and a 12 millimeter trocar suprapubically. At this time any pelvic adhesions were lysed with sharp dissection. The uterus was manipulated with a previously EEA sizer. There was no apparent extra-uterine disease and the cervix appeared to be expanded to 3- cm. The right round ligament was transected with a Thunderbeat. The bladder flap was then developed with a Gyrus bipolar cutting forceps and Omni as well as blunt dissection. The retroperitoneal area was opened and the ureter was identified as the opening was extended parallel to the IP-ligament. After repositioning the ureter laterally away from the peritoneum, the marcial-rectal and marcial-vessicle space was developed bluntly, after which the IP-ligament was cauterized and transected with a Thunderbeat. Subsequently the left round ligament was transected with a Thunderbeat. The bladder flap was then further developed with a Gyrus bipolar cutting forceps and blunt dissection. The contralateral retroperitoneal area was opened and the ureter was identified as the opening was extended parallel to the IP-ligament. After repositioning the ureter laterally away from the peritoneum, the marcial-rectal and marcial-vessicle space was developed bluntly, after which the IP-ligament was cauterized and transected with a Gyrus bipolar cutting forceps. We then repositioned fan retractors exposure with a Eleazar Arm . With the right ureter identified and traced out the uterine vessels were separately identified, clipped, and cut. The ureter was then tunneled through the parametria with an endo dissector, and the parametrial pedicles were transected with a Thunderbeat and Omni. An identical procedure was used to transect the uterosacral ligaments an appropriate distance from the cervix with both the Thunderbeat and the Omni. The identical procedure was then completed contralaterally without incident after which the bladder pillars were then dissected and clipped as well as cauterized with the Omni if remote from the ureter after which the ureters were confirmed to be undamaged. Hence, additional paravaginal tissue was transected with the Omni and Gyrus bipolar cutting forceps and the uterus and cervix from the vagina by Name: Adry [facility] using a Thunderbeat with the Omni being used fro additional hemostasis. Colpotomies were made posterior and anterior and extended completely with the Omni and Thunderbeat. The uterus was removed from below and the vagina closed with 2-0 continuous v-lock suture. After confirming hemostasis we addressed the lymph node dissection. Initially all lymph node tissue adjacent to the right external iliac artery and vein, hypogastric artery and vein, as well as obturator fossa were removed with sharp and blunt dissection, using the Gyrus bipolar cutting forceps for hemostasis and lymphostasis. The dissection was continued to include jovana tissue adjacent to the common iliac vessels. The obturator nerve was identified and all adjacent jovana tissue removed with blunt dissection, with the Omni cautery used for lymphostasis and hemostasis as needed. The fan retractors were adjusted and any jovana tissue adjacent to the vena cava, as well as aorto-caval nodes were removed using identical technique. [employer] vessels were addressed with the Gyrus bipolar cutting forceps. At this time we placed the fan retractors and all lymph node tissue adjacent to the left external iliac artery and vein, hypogastric artery and vein, as well as obturator fossa were removed with sharp and blunt dissection, using the Gyrus bipolar cutting forceps for hemostasis and lymphostasis, with a technique identical to the right side. The dissection was continued to include jovana tissue adjacent to the common iliac vessels. Subsequently, the fan retractors were adjusted and any jovana tissue adjacent to the aorta were dissected using similar technique. We then went back above and confirmed hemostasis. After irrigating and assuring hemostasis all 12 millimeter trocar fascia was removed and the fascia was closed with 0-vicryl using with endo-close devise. The gas was removed and the skin of all sites then closed with subcutaneous 3-0 Vicryl suture and interrupted 5-0 Plain Gut. The EBL was 200cc and the patient tolerated the procedure well and left the OR in good condition. Jamilah Ferro M.D. JAMILAH FERRO MD Apr 28, 2016 19:05
--- NOTE | 2016-04-28 19:22 | PN ---
Date/Time of Note Date/Time of Note DATE: 04/28/16 TIME: 19:07 Assessment/Plan VTE Prophylaxis VTE Prophylaxis Intervention: SCD's Lines/Catheters IV Catheter Type (from Nrsg): Peripheral IV Assessment/Plan Chief Complaint/Hosp Course Cervical cancer IB2 Problems: Assessment/Plan A- improved. suggestion of EtOH withdrawal per NOTE; pain due to gas pains from ileus/narcotics/bedrest - NOT constipation as patient was completely bowel prepped preop (no stool) P- Haynes flush to be repeated if needed EtOH issue per hospitalist IVF reduced in lieu of BP Subjective 24 Hr Interval Summary Free Text/Dictation S- Comfortable but very sedated due to ativan. O- Resp- clear CVS- NSR Abd- Soft mild distension and less discomfort Ext- NT minimal edema A- improved. suggestion of EtOH withdrawal per NOTE; pain due to gas pains from ileus/narcotics/bedrest - NOT constipation as patient was completely bowel prepped preop (no stool) P- Haynes flush to be repeated if needed EtOH issue per hospitalist IVF reduced in lieu of BP Exam/Review of Systems Vital Signs Vitals Vital Signs Date Time Temp Pulse Resp B/P Pulse Ox O2 Delivery O2 Flow Rate FiO2 04/28/16 19:00 91 23 94/69 97 Nasal Cannula 2.0 04/28/16 16:00 99.4 Intake and Output 04/27/16 04/27/16 04/28/16 15:00 23:00 07:00 Intake Total 479.375 ml 400 ml 630 ml Output Total 240 ml 560 ml 825 ml Balance 239.375 ml -160 ml -195 ml Results Result Diagram: 04/28/16 0530 04/28/16 0530 Results 24 hrs Laboratory Tests Test 04/28/16 05:30 Anion Gap 13 Basophils # 0.0 Basophils % 0.3 Blood Morphology Comment Blood Urea Nitrogen 11 Calcium Level 8.7 Carbon Dioxide Level 23 Chloride Level 109 Creatinine 0.74 Eosinophils # 0.0 Eosinophils % 0.1 Glucose Level 82 Hematocrit 31.0 L Hemoglobin 10.6 L Lymphocytes # 1.6 Lymphocytes % 12.6 L Magnesium Level 1.1 L Mean Corpuscular Hemoglobin 32.6 Mean Corpuscular Hemoglobin Concent 34.2 Mean Corpuscular Volume 95.2 Mean Platelet Volume 10.8 H Monocytes # 1.0 H Monocytes % 7.9 Neutrophils # 10.3 H Neutrophils % 79.1 H Nucleated Red Blood Cells # 0.0 Nucleated Red Blood Cells % 0.0 Platelet Count 147 Potassium Level 3.5 Red Blood Count 3.26 L Red Cell Distribution Width 16.5 H Sodium Level 141 White Blood Count 13.0 #H Medications Medications Current Medications Hydromorphone HCl (Dilaudid) 0.2 mg Q2H PRN IV PAIN LEVEL 1-5; Start 04/26/16 at 17:00 Morphine Sulfate (morphine) 4 mg Q2H PRN IV PAIN LEVEL 6-10 Last administered on 04/28/16 07:37; Admin Dose 4 MG; Start 04/26/16 at 17:00 Morphine Sulfate 2 mg 2 mg Q4H PRN IV PAIN Last administered on 04/27/16 21:34 ; Admin Dose 2 MG; Start 04/26/16 at 13:30 Potassium Cl/ Dextrose/Lact Ringer's (D5-Lr + KCl 20 Meq) 1,000 ml @ 80 mls/hr [id number] IV Last administered on 04/28/16 10:39; Admin Dose 100 MLS/HR; Start 04/26/16 at 13:30 Quetiapine Fumarate (Seroquel) 100 mg DAILY PO Last administered on 04/28/16 08:31; Admin Dose 100 MG; Start 04/27/16 at 09:00 Diphenhydramine HCl (Benadryl) 25 mg Q4H PRN IV PRURITUS; Start 04/26/16 at 23: 30 Nalbuphine HCl (Nubain) 10 mg Q4H PRN IV PRURITUS; Start 04/26/16 at 23:30 Ondansetron HCl (Zofran Inj) 4 mg Q6H PRN IV NAUSEA AND/OR VOMITING; Start at 23:30 Naloxone HCl 0.2 mg 0.2 mg Q2M PRN IV FOR RESP RATE 8 OR LESS; Start 04/26/16 at 23:30 Norepinephrine/ Dextrose (Levophed/D5W) 500 ml @ 1.87 mls/hr TITRATE IV ; Start 04/27/16 at 07:00 Acetaminophen 650 mg 650 mg Q6H PRN PO PAIN AND OR ELEVATED TEMP Last administered on 04/28/16 11:41; Admin Dose 650 MG; Start 04/27/16 at 13:00 Multivitamins/ Thiamine HCl/ Folic Acid/Sodium Chloride (Mvi-12 Adult/ Vitamin B1/Folic Acid/NS) 1,011.2 ml @ 60 mls/hr DAILY@09 IVPB Last administered on 14:30; Admin Dose 60 MLS/HR; Start 04/27/16 at 15:00 Hydralazine HCl (Apresoline) 10 mg Q4H PRN IV SBP > 160 Last administered on 18:10; Admin Dose 10 MG; Start 04/28/16 at 05:30 Magnesium Hydroxide (Milk Of Mag) 30 ml DAILY PRN PO CONSTIPATION; Start at 07:00 Lorazepam (Ativan) 1 mg Q2H PRN IV ANXIETY Last administered on 04/28/16 16:54 ; Admin Dose 1 MG; Start 04/28/16 at 09:00 Labetalol HCl (Labetalol) 20 mg Q2H PRN IV SBP >170 Last administered on 12:32; Admin Dose 20 MG; Start 04/28/16 at 09:00 JAMILAH FERRO MD Apr 28, 2016 19:21
[2016-04-29] VITALS (33 sets, daily range): BP systolic 116–193; BP diastolic 61–145; PULSE 77–99; RESP 17–46
[2016-04-29] MEDS: MULTIVITAMINS 10 ML, THIAMINE 100 MG, FOLIC ACID 1 MG in SOD CHLORIDE 0.9% 1,000 ML IVPB SCH (00:50)
[2016-04-29] MEDS: LABETALOL HCL 20MG INJ IV PRN ×2 (01:04→05:53)
[2016-04-29] MEDS: LORAZEPAM 2 MG INJ IV PRN ×3 (02:05→06:53)
[2016-04-29] MEDS: hydrALAzine 20 MG INJ IV PRN ×3 (03:41→15:46)
[2016-04-29 07:09] LABS: BASOPHILS % 0.1 % (0.0-2.0); EOSINOPHILS % 0.2 % (0.0-7.0); HEMATOCRIT 25.6 % (37.0-47.0); HEMOGLOBIN 8.8 g/dl (12.0-16.0); LYMPHOCYTES # 0.8 10^3/ul (0.8-2.9); LYMPHOCYTES % 7.7 % (15.0-51.0); MEAN CORPUSCULAR HEMOGLOBIN 33.1 pg (29.0-33.0); MEAN CORPUSCULAR HGB CONC 34.5 g/dl (32.0-37.0); MEAN PLATELET VOLUME 10.5 fl (7.4-10.4); MONOCYTE # 0.5 10^3/ul (0.3-0.9); MONOCYTES % 4.2 % (0.0-11.0); NEUTROPHIL # 9.4 10^3/ul (1.6-7.5); NEUTROPHILS % 87.8 % (39.0-77.0); PLATELET COUNT 139 10^3/UL (140-440); RED BLOOD COUNT 2.67 10^6/ul (4.20-5.40); RED CELL DISTRIBUTION WIDTH 15.9 % (11.5-14.5); UNCORRECTED WBC 10.6 10^3/ul (4.8-10.8); WHITE BLOOD COUNT 10.6 10^3/ul (4.8-10.8)
[2016-04-29 07:12] LABS: CONDITION 1; LH ANALYZER COMMENTS 1
[2016-04-29 07:15] LABS: CREATININE 0.35 mg/dl (0.44-1.00); PHOSPHORUS 1.9 mg/dl (2.5-4.9)
[2016-04-29 07:16] LABS: MAGNESIUM 1.2 mg/dl (1.7-2.5)
[2016-04-29 07:18] LABS: POTASSIUM 2.4 mmol/L (3.5-5.1)
[2016-04-29 07:19] LABS: CALCIUM 5.8 mg/dl (8.4-10.2)
[2016-04-29] MEDS ORDERED: POTASSIUM CHLORIDE 50 ML IVPB ONE (08:00)
[2016-04-29] MEDS ORDERED: POTASSIUM CHLORIDE 20 MEQ POWDER FOR ORAL SOLN PO ONE ×2 (08:00→12:00)
[2016-04-29] MEDS: morphine 2 MG INJ IV PRN ×2 (08:10→15:52)
[2016-04-29] MEDS: QUETIAPINE 100 MG TAB PO SCH (08:10)
--- NOTE | 2016-04-29 10:46 | PN ---
Date/Time of Note Date/Time of Note DATE: 04/29/16 TIME: 10:42 Assessment/Plan VTE Prophylaxis VTE Prophylaxis Intervention: SCD's Lines/Catheters IV Catheter Type (from Nrs): Saline Lock Urinary Cath still in place: Yes Reason Cath still needed: other (indicate) Assessment/Plan Chief Complaint/Hosp Course Chief Complaint/Hosp Course 1. Cervical cancer status post laparoscopic hysterectomy with bilateral salpingo -oophorectomy Continue postsurgical care 2. History of hypertension BP Low, hold home Rx, was on pressors but now off 3. AMS 2/2 EtOH withdrawl Continue banana bag, Ativan PRN 4. SIRS 2/2 EtOH withdrawl vs infection Blood Cx x 2 KUB is nl, Ucx is negative Likely reactive secondary to alcohol withdrawal 5. Microcytic anemia, likely secondary to history of alcoholism Continue to monitor, patient is on banana bag, will transfuse PRBC if hemoglobin is less than 7.5 6. Electrolyte imbalance Repleted, follow up BMP and magnesium in a.m. Prophylaxis: Sequential compression devices. Problems: Subjective 24 Hr Interval Summary Free Text/Dictation Patient continues to be altered Family at the bedside Off pressors Exam/Review of Systems Vital Signs Vitals Vital Signs Date Time Temp Pulse Resp B/P Pulse Ox O2 Delivery O2 Flow Rate FiO2 04/29/16 08:30 81 28 149/69 98 Room Air 04/29/16 07:30 97.8 04/28/16 23:00 2.0 Intake and Output 04/28/16 04/28/16 04/29/16 15:00 23:00 07:00 Intake Total 530 ml 730 ml 400 ml Output Total 440 ml 375 ml 300 ml Balance 90 ml 355 ml 100 ml Exam General: The patient is mildly agitated/altered, Not in acute distress. HEENT: Atraumatic, normocephalic. The pupils are equal and round . Neck: Supple with full range of motion. Chest: Normal expansion of the thorax during inspiration Lungs: Clear to auscultation bilaterally Heart: Normal S1-S2, Regular rhythm and rate. Abdomen: Soft , nontender, nondistended , bowel sounds are present. Extremities: Normal to inspection, no edema no cyanosis Neurologic: The patient is awake, and easily arousable Results Result Diagram: 04/29/16 0625 04/29/16 0625 Results 24 hrs Laboratory Tests Test 04/29/16 06:25 Anion Gap 10 Basophils # 0.0 Basophils % 0.1 Blood Morphology Comment Blood Urea Nitrogen 6 L Calcium Level 5.8 *L Carbon Dioxide Level 18 L Chloride Level 118 H Creatinine 0.35 L Eosinophils # 0.0 Eosinophils % 0.2 Glucose Level 86 Hematocrit 25.6 L Hemoglobin 8.8 L Lymphocytes # 0.8 Lymphocytes % 7.7 L Magnesium Level 1.2 L Mean Corpuscular Hemoglobin 33.1 H Mean Corpuscular Hemoglobin Concent 34.5 Mean Corpuscular Volume 96.0 Mean Platelet Volume 10.5 H Monocytes # 0.5 Monocytes % 4.2 Neutrophils # 9.4 H Neutrophils % 87.8 H Nucleated Red Blood Cells # 0.0 Nucleated Red Blood Cells % 0.0 Phosphorus Level 1.9 L Platelet Count 139 L Potassium Level 2.4 *L Red Blood Count 2.67 L Red Cell Distribution Width 15.9 H Sodium Level 144 White Blood Count 10.6 Medications Medications Current Medications Hydromorphone HCl (Dilaudid) 0.2 mg Q2H PRN IV PAIN LEVEL 1-5; Start 04/26/16 at 17:00 Morphine Sulfate (morphine) 4 mg Q2H PRN IV PAIN LEVEL 6-10 Last administered on 04/28/16 07:37; Admin Dose 4 MG; Start 04/26/16 at 17:00 Morphine Sulfate 2 mg 2 mg Q4H PRN IV PAIN Last administered on 04/29/16 08:10 ; Admin Dose 2 MG; Start 04/26/16 at 13:30 Potassium Cl/ Dextrose/Lact Ringer's (D5-Lr + KCl 20 Meq) 1,000 ml @ 80 mls/hr [id number] IV Last administered on 04/28/16 10:39; Admin Dose 100 MLS/HR; Start 04/26/16 at 13:30 Quetiapine Fumarate (Seroquel) 100 mg DAILY PO Last administered on 04/29/16 08:10; Admin Dose 100 MG; Start 04/27/16 at 09:00 Diphenhydramine HCl (Benadryl) 25 mg Q4H PRN IV PRURITUS; Start 04/26/16 at 23: 30 Nalbuphine HCl (Nubain) 10 mg Q4H PRN IV PRURITUS; Start 04/26/16 at 23:30 Ondansetron HCl (Zofran Inj) 4 mg Q6H PRN IV NAUSEA AND/OR VOMITING; Start at 23:30 Naloxone HCl 0.2 mg 0.2 mg Q2M PRN IV FOR RESP RATE 8 OR LESS; Start 04/26/16 at 23:30 Norepinephrine/ Dextrose (Levophed/D5W) 500 ml @ 1.87 mls/hr TITRATE IV ; Start 04/27/16 at 07:00 Acetaminophen 650 mg 650 mg Q6H PRN PO PAIN AND OR ELEVATED TEMP Last administered on 04/28/16 11:41; Admin Dose 650 MG; Start 04/27/16 at 13:00 Multivitamins/ Thiamine HCl/ Folic Acid/Sodium Chloride (Mvi-12 Adult/ Vitamin B1/Folic Acid/NS) 1,011.2 ml @ 60 mls/hr DAILY@09 IVPB Last administered on 00:50; Admin Dose 60 MLS/HR; Start 04/27/16 at 15:00 Hydralazine HCl (Apresoline) 10 mg Q4H PRN IV SBP > 160 Last administered on 08:09; Admin Dose 10 MG; Start 04/28/16 at 05:30 Magnesium Hydroxide (Milk Of Mag) 30 ml DAILY PRN PO CONSTIPATION; Start at 07:00 Lorazepam (Ativan) 1 mg Q2H PRN IV ANXIETY Last administered on 04/29/16 06:53 ; Admin Dose 1 MG; Start 04/28/16 at 09:00 Labetalol HCl (Labetalol) 20 mg Q2H PRN IV SBP >170 Last administered on 05:53; Admin Dose 20 MG; Start 04/28/16 at 09:00 Potassium Chloride (Potassium Chloride Pwd/Soln) 40 meq ONCE ONCE PO ; Start at 12:00; Stop 04/29/16 at 12:01 Calcium/Vitamin D 1 tab 1 tab BID PO ; Start 04/29/16 at 11:00; Status UNV Potassium Chloride/ Magnesium Sulfate/ Sodium Chloride (KCl/Magnesium Sulfate/NS ) 171 ml @ 55 mls/hr ONCE ONCE IVPB ; Start 04/29/16 at 11:00; Stop 04/29/16 at 14:06; Status UNV NAGHDECHI,CITLALLI MD Apr 29, 2016 10:46
[2016-04-29] MEDS ORDERED: POTASSIUM CHLORIDE 250 ML IVPB ONE (11:00)
[2016-04-29] MEDS ORDERED: SOD CHLORIDE 0.9% IVPB ONE (11:30)
[2016-04-29] MEDS ORDERED: POTASSIUM CHLORIDE IVPB ONE (11:30)
[2016-04-29] MEDS ORDERED: MAGNESIUM SULFATE IVPB ONE (11:30)
[2016-04-29] MEDS: CALCIUM/VITAMIN D (500/200) TAB PO SCH ×2 (12:03→22:14)
[2016-04-29 14:39] LABS: POTASSIUM 4.4 mmol/L (3.5-5.1)
[2016-04-29 14:41] LABS: CREATININE 0.52 mg/dl (0.44-1.00)
[2016-04-29 14:42] LABS: CALCIUM 8.6 mg/dl (8.4-10.2)
[2016-04-29] MEDS: D5-LR + KCL 20 MEQ 1,000 ML IV SCH ×2 (15:51→16:11)
[2016-04-29] MEDS ORDERED: FUROSEMIDE 20 MG INJ IV ONE (18:00)
[2016-04-29] MEDS: hydrALAzine 20 MG INJ IV SCH (18:15)
[2016-04-29 18:16] LABS: AADO2 Arterial 55.2 mmHg (7.0-24.0); Allen Test ACCEPTAB; Arterial Base Excess -0.8 mmol/L (-3.0-3); Arterial COHb 0.3 % (0.0-3.0); Arterial HCO3 20.3 mmol/L (22.0-26.0); Arterial MetHb 0.3 % (0.0-1.5); Arterial Total Hemglobin 12.8 g/dl (12.0-18.0); MODE ROOM AIR
[2016-04-30] VITALS (19 sets, daily range): BP systolic 150–191; BP diastolic 74–93; PULSE 79–93; RESP 18–30
[2016-04-30] MEDS: morphine 2 MG INJ IV PRN (02:07)
[2016-04-30] MEDS: hydrALAzine 20 MG INJ IV SCH ×3 (02:17→12:27)
[2016-04-30] MEDS ORDERED: FUROSEMIDE 20 MG INJ IV ONE (04:00)
[2016-04-30] MEDS: ACETAMINOPHEN 325 MG TAB PO PRN ×2 (04:09→20:49)
[2016-04-30] MEDS: hydrALAzine 20 MG INJ IV PRN ×2 (07:04→15:46)
[2016-04-30] MEDS ORDERED: GABA300S PO (07:58)
[2016-04-30] MEDS ORDERED: LOSA1TAB20 PO (07:58)
[2016-04-30] MEDS: CALCIUM/VITAMIN D (500/200) TAB PO SCH ×2 (10:38→20:49)
[2016-04-30] MEDS: MULTIVITAMINS 10 ML, THIAMINE 100 MG, FOLIC ACID 1 MG in SOD CHLORIDE 0.9% 1,000 ML IVPB SCH (10:39)
[2016-04-30] MEDS: D5-LR + KCL 20 MEQ 1,000 ML IV SCH (11:02)
--- NOTE | 2016-04-30 15:27 | PN ---
Date/Time of Note Date/Time of Note DATE: 04/30/16 TIME: 15:25 Assessment/Plan VTE Prophylaxis VTE Prophylaxis Intervention: SCD's Lines/Catheters IV Catheter Type (from Nrs): Peripheral IV Urinary Cath still in place: Yes Reason Cath still needed: other (indicate) Assessment/Plan Chief Complaint/Hosp Course Chief Complaint/Hosp Course 1. Cervical cancer status post laparoscopic hysterectomy with bilateral salpingo -oophorectomy Continue postsurgical care 2. History of hypertension BP Low, hold home Rx, continue to monitor 3. AMS 2/2 EtOH withdrawl Continue banana bag, Ativan PRN 4. SIRS 2/2 EtOH withdrawl vs infection Blood Cx x 2 KUB is nl, Ucx is negative Likely reactive secondary to alcohol withdrawal 5. Microcytic anemia, likely secondary to history of alcoholism Continue to monitor, patient is on banana bag, will transfuse PRBC if hemoglobin is less than 7.5 6. Electrolyte imbalance Repleted, follow up BMP and magnesium in a.m. Prophylaxis: Sequential compression devices. Problems: Subjective 24 Hr Interval Summary Free Text/Dictation Patient is more awake alert and oriented Able to follow commands Tolerating oral intake Exam/Review of Systems Vital Signs Vitals Vital Signs Date Time Temp Pulse Resp B/P Pulse Ox O2 Delivery O2 Flow Rate FiO2 04/30/16 13:49 93 04/30/16 12:12 99.4 19 183/88 98 04/30/16 08:30 Nasal Cannula 04/30/16 08:10 2.0 Intake and Output 04/29/16 04/29/16 04/30/16 15:00 23:00 07:00 Intake Total 871 ml 80 ml Output Total 310 ml 1000 ml 400 ml Balance 561 ml -1000 ml -320 ml Exam General: The patient is well-developed, Not in acute distress. HEENT: Atraumatic, normocephalic. The pupils are equal and round . Neck: Supple with full range of motion. Chest: Normal expansion of the thorax during inspiration Lungs: Clear to auscultation bilaterally Heart: Normal S1-S2, Regular rhythm and rate. Abdomen: Soft , nontender, nondistended , bowel sounds are present. Surgical site is dry and clean Extremities: Normal to inspection, no edema no cyanosis Neurologic: Normal mental status,The patient is awake, alert and oriented . Results Result Diagram: 04/29/16 0625 04/29/16 1355 Results 24 hrs Laboratory Tests Test 04/29/16 17:43 Arterial Blood HCO3 20.3 L Arterial Blood Base Excess -0.8 Arterial Blood Oxygen Saturation 93.6 L Thaddeus Test ACCEPTAB Arterial Blood Gas Puncture Site Left Radial Arterial Blood Carboxyhemoglobin 0.3 Arterial Blood Date Drawn 04/29/2016 6:00:32 PM Arterial Blood Methemoglobin 0.3 Arterial Blood pCO2 (Temp correct) 24.4 L Arterial Blood pH (Temp corrected) 7.537 H Arterial Blood pO2 (Temp corrected) 65.3 L Blood Gas A-a O2 Differential 55.2 H Blood Gas Modality ROOM AIR Blood Gas Notified Time 04/29/2016 6:15:51 PM Blood Gas Notified Whom LS Blood Gas Specimen Source Blood arterial Blood Gas Temperature 37.0 FiO2 21.0 Oxyhemoglobin Percent 93.0 Total Hemoglobin 12.8 Medications Medications Current Medications Hydromorphone HCl (Dilaudid) 0.2 mg Q2H PRN IV PAIN LEVEL 1-5; Start 04/26/16 at 17:00 Morphine Sulfate (morphine) 4 mg Q2H PRN IV PAIN LEVEL 6-10 Last administered on 04/28/16 07:37; Admin Dose 4 MG; Start 04/26/16 at 17:00 Morphine Sulfate 2 mg 2 mg Q4H PRN IV PAIN Last administered on 04/30/16 02:07 ; Admin Dose 2 MG; Start 04/26/16 at 13:30 Potassium Cl/ Dextrose/Lact Ringer's (D5-Lr + KCl 20 Meq) 1,000 ml @ 50 mls/hr Q20H IV Last administered on 04/29/16 15:51; Admin Dose 80 MLS/HR; Start 04/26 at 13:30 Quetiapine Fumarate (Seroquel) 100 mg DAILY PO Last administered on 04/29/16 08:10; Admin Dose 100 MG; Start 04/27/16 at 09:00; Status Future Hold Diphenhydramine HCl (Benadryl) 25 mg Q4H PRN IV PRURITUS Last administered on 04:09; Admin Dose 25 MG; Start 04/26/16 at 23:30 Nalbuphine HCl (Nubain) 10 mg Q4H PRN IV PRURITUS; Start 04/26/16 at 23:30 Ondansetron HCl (Zofran Inj) 4 mg Q6H PRN IV NAUSEA AND/OR VOMITING; Start at 23:30 Naloxone HCl 0.2 mg 0.2 mg Q2M PRN IV FOR RESP RATE 8 OR LESS; Start 04/26/16 at 23:30 Norepinephrine/ Dextrose (Levophed/D5W) 500 ml @ 1.87 mls/hr TITRATE IV ; Start 04/27/16 at 07:00 Acetaminophen 650 mg 650 mg Q6H PRN PO PAIN AND OR ELEVATED TEMP Last administered on 04/30/16 04:09; Admin Dose 325 MG; Start 04/27/16 at 13:00 Multivitamins/ Thiamine HCl/ Folic Acid/Sodium Chloride (Mvi-12 Adult/ Vitamin B1/Folic Acid/NS) 1,011.2 ml @ 60 mls/hr DAILY@09 IVPB Last administered on 10:39; Admin Dose 60 MLS/HR; Start 04/27/16 at 15:00 Hydralazine HCl (Apresoline) 10 mg Q4H PRN IV SBP > 160 Last administered on 07:04; Admin Dose 10 MG; Start 04/28/16 at 05:30 Magnesium Hydroxide (Milk Of Mag) 30 ml DAILY PRN PO CONSTIPATION; Start at 07:00 Lorazepam (Ativan) 1 mg Q2H PRN IV ANXIETY Last administered on 04/29/16 06:53 ; Admin Dose 1 MG; Start 04/28/16 at 09:00 Labetalol HCl (Labetalol) 20 mg Q2H PRN IV SBP >170 Last administered on 05:53; Admin Dose 20 MG; Start 04/28/16 at 09:00 Calcium/Vitamin D (Oyster Shell/ Vit-D (500/200)) 1 tab BID PO Last administered on 04/30/16 10:38; Admin Dose 1 TAB; Start 04/29/16 at 11:00 Hydralazine HCl (Apresoline) 5 mg Q6 IV Last administered on 04/30/16 12:27; Admin Dose 5 MG; Start 04/29/16 at 18:00 CITLALLI LAI MD Apr 30, 2016 15:26
[2016-04-30 16:15] LABS: HEMATOCRIT 43.3 % (37.0-47.0); HEMOGLOBIN 14.6 g/dl (12.0-16.0); MEAN CORPUSCULAR HEMOGLOBIN 31.9 pg (29.0-33.0); MEAN CORPUSCULAR HGB CONC 33.8 g/dl (32.0-37.0); MEAN CORPUSCULAR VOLUME 94.4 fl (82.0-101.0); RED BLOOD COUNT 4.59 10^6/ul (4.20-5.40); RED CELL DISTRIBUTION WIDTH 15.7 % (11.5-14.5); WHITE BLOOD COUNT 9.6 10^3/ul (4.8-10.8)
[2016-04-30 16:17] LABS: POTASSIUM 4.6 mmol/L (3.5-5.1)
[2016-04-30 16:19] LABS: CREATININE 0.54 mg/dl (0.44-1.00)
[2016-04-30 16:20] LABS: CALCIUM 8.4 mg/dl (8.4-10.2); MAGNESIUM 1.6 mg/dl (1.7-2.5)
[2016-04-30 16:27] LABS: UNCORRECTED WBC 10.4 10^3/ul (4.8-10.8)
[2016-04-30 16:28] LABS: CONDITION 1; LH ANALYZER COMMENTS 1; PLATELET COUNT 101 10^3/UL (140-440); SUSPECT 1
[2016-04-30 16:51] LABS: LYMPHOCYTES # 0.9 10^3/ul (0.8-2.9); MONOCYTE # 1.2 10^3/ul (0.3-0.9); NEUTROPHIL # 7.6 10^3/ul (1.6-7.5)
--- NOTE | 2016-04-30 17:34 | PN ---
Date/Time of Note Date/Time of Note DATE: 04/30/16 TIME: 17:31 Assessment/Plan VTE Prophylaxis VTE Prophylaxis Intervention: SCD's Lines/Catheters IV Catheter Type (from Nrs): Peripheral IV Urinary Cath still in place: Yes Assessment/Plan Chief Complaint/Hosp Course Cervical cancer IB2 Problems: Assessment/Plan A- improved. P- Consider OOB with PT to mobilize and anticipate tranfer Subjective 24 Hr Interval Summary Free Text/Dictation S- Comfortable and quite alert O- Resp- clear CVS- NSR Abd- Soft mild distension and minimal discomfort Ext- NT minimal edema A- improved. P- Consider OOB with PT to mobilize and anticipate transfer to . Exam/Review of Systems Vital Signs Vitals Vital Signs Date Time Temp Pulse Resp B/P Pulse Ox O2 Delivery O2 Flow Rate FiO2 04/30/16 17:17 92 180/87 98 Nasal Cannula 2.0 04/30/16 16:12 99.4 18 Intake and Output 04/29/16 04/29/16 04/30/16 15:00 23:00 07:00 Intake Total 871 ml 80 ml Output Total 310 ml 1000 ml 400 ml Balance 561 ml -1000 ml -320 ml Results Result Diagram: 04/30/16 1440 04/30/16 1440 Results 24 hrs Laboratory Tests Test 04/29/16 17:43 04/30/16 14:40 Arterial Blood HCO3 20.3 L Arterial Blood Base Excess -0.8 Arterial Blood Oxygen Saturation 93.6 L Thaddeus Test ACCEPTAB Arterial Blood Gas Puncture Site Left Radial Arterial Blood Carboxyhemoglobin 0.3 Arterial Blood Date Drawn 04/29/2016 6:00:32 PM Arterial Blood Methemoglobin 0.3 Arterial Blood pCO2 (Temp correct) 24.4 L Arterial Blood pH (Temp corrected) 7.537 H Arterial Blood pO2 (Temp corrected) 65.3 L Blood Gas A-a O2 Differential 55.2 H Blood Gas Modality ROOM AIR Blood Gas Notified Time 04/29/2016 6:15:51 PM Blood Gas Notified Whom LS Blood Gas Specimen Source Blood arterial Blood Gas Temperature 37.0 FiO2 21.0 Oxyhemoglobin Percent 93.0 Total Hemoglobin 12.8 Anion Gap 17 H Basophils # Basophils % Blood Morphology Comment Blood Urea Nitrogen 9 Calcium Level 8.4 Carbon Dioxide Level 20 L Chloride Level 107 Creatinine 0.54 Eosinophils # Eosinophils % Glucose Level 109 Hematocrit 43.3 # Hemoglobin 14.6 # Lymphocytes # 0.9 Lymphocytes % 9.0 L Magnesium Level 1.6 L Mean Corpuscular Hemoglobin 31.9 Mean Corpuscular Hemoglobin Concent 33.8 Mean Corpuscular Volume 94.4 Mean Platelet Volume 12.0 H Monocytes # 1.2 H Monocytes % 12.0 H Neutrophils # 7.6 H Neutrophils % 79.0 H Nucleated Red Blood Cells # Nucleated Red Blood Cells % Platelet Count 101 #L Potassium Level 4.6 Red Blood Count 4.59 # Red Cell Distribution Width 15.7 H Sodium Level 139 White Blood Count 9.6 Medications Medications Current Medications Hydromorphone HCl (Dilaudid) 0.2 mg Q2H PRN IV PAIN LEVEL 1-5; Start 04/26/16 at 17:00 Morphine Sulfate (morphine) 4 mg Q2H PRN IV PAIN LEVEL 6-10 Last administered on 04/28/16 07:37; Admin Dose 4 MG; Start 04/26/16 at 17:00 Morphine Sulfate 2 mg 2 mg Q4H PRN IV PAIN Last administered on 04/30/16 02:07 ; Admin Dose 2 MG; Start 04/26/16 at 13:30 Potassium Cl/ Dextrose/Lact Ringer's (D5-Lr + KCl 20 Meq) 1,000 ml @ 50 mls/hr Q20H IV Last administered on 04/29/16 15:51; Admin Dose 80 MLS/HR; Start 04/26 at 13:30 Quetiapine Fumarate (Seroquel) 100 mg DAILY PO Last administered on 04/29/16 08:10; Admin Dose 100 MG; Start 04/27/16 at 09:00; Status Future Hold Diphenhydramine HCl (Benadryl) 25 mg Q4H PRN IV PRURITUS Last administered on 04:09; Admin Dose 25 MG; Start 04/26/16 at 23:30 Ondansetron HCl (Zofran Inj) 4 mg Q6H PRN IV NAUSEA AND/OR VOMITING; Start at 23:30 Acetaminophen 650 mg 650 mg Q6H PRN PO PAIN AND OR ELEVATED TEMP Last administered on 04/30/16 04:09; Admin Dose 325 MG; Start 04/27/16 at 13:00 Multivitamins/ Thiamine HCl/ Folic Acid/Sodium Chloride (Mvi-12 Adult/ Vitamin B1/Folic Acid/NS) 1,011.2 ml @ 60 mls/hr DAILY@09 IVPB Last administered on 10:39; Admin Dose 60 MLS/HR; Start 04/27/16 at 15:00 Hydralazine HCl (Apresoline) 10 mg Q4H PRN IV SBP > 160 Last administered on 15:46; Admin Dose 10 MG; Start 04/28/16 at 05:30 Magnesium Hydroxide (Milk Of Mag) 30 ml DAILY PRN PO CONSTIPATION; Start at 07:00 Lorazepam (Ativan) 1 mg Q2H PRN IV ANXIETY Last administered on 04/29/16 06:53 ; Admin Dose 1 MG; Start 04/28/16 at 09:00 Calcium/Vitamin D (Oyster Shell/ Vit-D (500/200)) 1 tab BID PO Last administered on 04/30/16 10:38; Admin Dose 1 TAB; Start 04/29/16 at 11:00 Hydralazine HCl (Apresoline) 50 mg Q8 PO ; Start 04/30/16 at 22:00 JAMILAH FERRO MD Apr 30, 2016 17:34
[2016-04-30] MEDS: HYDROCHLOROTHIAZIDE 25 MG TAB PO SCH (18:17)
[2016-04-30] MEDS: BENAZEPRIL 20 MG TAB PO SCH (18:17)
[2016-04-30] MEDS ORDERED: MAGNESIUM CITRATE 300 ML BTL PO ONE (18:30)
[2016-05-01] VITALS (15 sets, daily range): BP systolic 141–182; BP diastolic 66–86; PULSE 77–89; RESP 18
[2016-05-01] MEDS: hydrALAzine 20 MG INJ IV PRN ×3 (00:16→20:28)
[2016-05-01] MEDS: morphine 2 MG INJ IV PRN ×3 (00:49→16:21)
[2016-05-01] MEDS: D5-LR + KCL 20 MEQ 1,000 ML IV SCH (04:40)
[2016-05-01] MEDS: MULTIVITAMINS 10 ML, THIAMINE 100 MG, FOLIC ACID 1 MG in SOD CHLORIDE 0.9% 1,000 ML IVPB SCH (08:30)
[2016-05-01] MEDS: CALCIUM/VITAMIN D (500/200) TAB PO SCH ×2 (08:32→20:29)
[2016-05-01] MEDS: BENAZEPRIL 20 MG TAB PO SCH (08:33)
[2016-05-01] MEDS: HYDROCHLOROTHIAZIDE 25 MG TAB PO SCH (08:33)
[2016-05-01] MEDS: DOCUSATE SODIUM 250 MG CAP PO SCH (08:33)
[2016-05-01 10:07] LABS: EOSINOPHILS # 0.2 10^3/ul (0.0-0.5); EOSINOPHILS % 1.7 % (0.0-7.0); HEMATOCRIT 37.8 % (37.0-47.0); HEMOGLOBIN 12.6 g/dl (12.0-16.0); LYMPHOCYTES # 1.3 10^3/ul (0.8-2.9); LYMPHOCYTES % 12.2 % (15.0-51.0); MEAN CORPUSCULAR HEMOGLOBIN 31.7 pg (29.0-33.0); MEAN CORPUSCULAR HGB CONC 33.4 g/dl (32.0-37.0); MEAN CORPUSCULAR VOLUME 94.7 fl (82.0-101.0); MEAN PLATELET VOLUME 10.7 fl (7.4-10.4); MONOCYTE # 0.2 10^3/ul (0.3-0.9); MONOCYTES % 1.9 % (0.0-11.0); NEUTROPHIL # 9.2 10^3/ul (1.6-7.5); NEUTROPHILS % 84.2 % (39.0-77.0); PLATELET COUNT 228 10^3/UL (140-440); RED BLOOD COUNT 3.99 10^6/ul (4.20-5.40); RED CELL DISTRIBUTION WIDTH 15.7 % (11.5-14.5); UNCORRECTED WBC 10.9 10^3/ul (4.8-10.8); WHITE BLOOD COUNT 10.9 10^3/ul (4.8-10.8)
[2016-05-01 10:14] LABS: POTASSIUM 3.8 mmol/L (3.5-5.1)
[2016-05-01 10:16] LABS: CONDITION 1; CREATININE 0.51 mg/dl (0.44-1.00); LH ANALYZER COMMENTS 1
[2016-05-01 10:17] LABS: CALCIUM 8.3 mg/dl (8.4-10.2)
[2016-05-01 10:18] LABS: MAGNESIUM 1.5 mg/dl (1.7-2.5)
[2016-05-01] MEDS ORDERED: INFLUENZA VIRUS VACCINE 0.5 ML SYG IM* ONE (12:00)
--- NOTE | 2016-05-01 16:48 | PN ---
Date/Time of Note Date/Time of Note DATE: 05/01/16 TIME: 16:46 Assessment/Plan VTE Prophylaxis VTE Prophylaxis Intervention: SCD's Lines/Catheters IV Catheter Type (from [facility]): Saline Lock Urinary Cath still in place: Yes Assessment/Plan Chief Complaint/Hosp Course Cervical cancer IB2 Problems: Assessment/Plan A- improved. P- Mobilize and adv diet. Probable discharge tomorrow with Ramírez bladder training. Subjective 24 Hr Interval Summary Free Text/Dictation S- Comfortable and quite alert and tolerated diet well O- Resp- clear CVS- NSR Abd- Soft mild distension and minimal discomfort Ext- NT minimal edema A- improved. P- Mobilize and adv diet. Probable discharge tomorrow with Ramírez bladder training. Exam/Review of Systems Vital Signs Vitals Vital Signs Date Time Temp Pulse Resp B/P Pulse Ox O2 Delivery O2 Flow Rate FiO2 05/01/16 16:28 85 159/77 05/01/16 16:13 98.4 18 99 05/01/16 08:00 Nasal Cannula 2.0 Intake and Output 04/30/16 04/30/16 05/01/16 15:00 23:00 07:00 Intake Total 430 ml 720 ml 480 ml Output Total 1100 ml 800 ml Balance 430 ml -380 ml -320 ml Results Result Diagram: 05/01/1636 05/01/16 0936 Results 24 hrs Laboratory Tests Test 05/01/16 09:36 Anion Gap 14 Basophils # 0.0 Basophils % 0.0 Blood Morphology Comment Blood Urea Nitrogen 6 L Calcium Level 8.3 L Carbon Dioxide Level 23 Chloride Level 104 Creatinine 0.51 Eosinophils # 0.2 Eosinophils % 1.7 Glucose Level 122 Hematocrit 37.8 Hemoglobin 12.6 Lymphocytes # 1.3 Lymphocytes % 12.2 L Magnesium Level 1.5 L Mean Corpuscular Hemoglobin 31.7 Mean Corpuscular Hemoglobin Concent 33.4 Mean Corpuscular Volume 94.7 Mean Platelet Volume 10.7 H Monocytes # 0.2 L Monocytes % 1.9 Neutrophils # 9.2 H Neutrophils % 84.2 H Nucleated Red Blood Cells # 0.0 Nucleated Red Blood Cells % 0.0 Platelet Count 228 # Potassium Level 3.8 Red Blood Count 3.99 L Red Cell Distribution Width 15.7 H Sodium Level 137 White Blood Count 10.9 H Medications Medications Current Medications Hydromorphone HCl (Dilaudid) 0.2 mg Q2H PRN IV PAIN LEVEL 1-5; Start 04/26/16 at 17:00 Morphine Sulfate (morphine) 4 mg Q2H PRN IV PAIN LEVEL 6-10 Last administered on 04/28/16 07:37; Admin Dose 4 MG; Start 04/26/16 at 17:00 Morphine Sulfate 2 mg 2 mg Q4H PRN IV PAIN Last administered on 05/01/16 16:21 ; Admin Dose 2 MG; Start 04/26/16 at 13:30 Potassium Cl/ Dextrose/Lact Ringer's (D5-Lr + KCl 20 Meq) 1,000 ml @ 50 mls/hr Q20H IV Last administered on 05/01/16 04:40; Admin Dose 50 MLS/HR; Start 04/26 at 13:30 Quetiapine Fumarate (Seroquel) 100 mg DAILY PO Last administered on 04/29/16 08:10; Admin Dose 100 MG; Start 04/27/16 at 09:00; Status Future Hold Diphenhydramine HCl (Benadryl) 25 mg Q4H PRN IV PRURITUS Last administered on 04:09; Admin Dose 25 MG; Start 04/26/16 at 23:30 Ondansetron HCl (Zofran Inj) 4 mg Q6H PRN IV NAUSEA AND/OR VOMITING; Start at 23:30 Acetaminophen 650 mg 650 mg Q6H PRN PO PAIN AND OR ELEVATED TEMP Last administered on 04/30/16 20:49; Admin Dose 650 MG; Start 04/27/16 at 13:00 Multivitamins/ Thiamine HCl/ Folic Acid/Sodium Chloride (Mvi-12 Adult/ Vitamin B1/Folic Acid/NS) 1,011.2 ml @ 60 mls/hr DAILY@09 IVPB Last administered on 10:39; Admin Dose 60 MLS/HR; Start 04/27/16 at 15:00 Hydralazine HCl (Apresoline) 10 mg Q4H PRN IV SBP > 160 Last administered on 04:40; Admin Dose 10 MG; Start 04/28/16 at 05:30 Magnesium Hydroxide (Milk Of Mag) 30 ml DAILY PRN PO CONSTIPATION; Start at 07:00 Lorazepam (Ativan) 1 mg Q2H PRN IV ANXIETY Last administered on 04/29/16 06:53 ; Admin Dose 1 MG; Start 04/28/16 at 09:00 Calcium/Vitamin D (Oyster Shell/ Vit-D (500/200)) 1 tab BID PO Last administered on 05/01/16 08:32; Admin Dose 1 TAB; Start 04/29/16 at 11:00 Hydralazine HCl (Apresoline) 25 mg BID PO Last administered on 05/01/16 08:33 ; Admin Dose 25 MG; Start 04/30/16 at 21:00 Benazepril HCl (Lotensin) 20 mg DAILY PO Last administered on 05/01/16 08:33; Admin Dose 20 MG; Start 04/30/16 at 18:30 Hydrochlorothiazide (Hydrochlorothiazide) 25 mg DAILY PO Last administered on 08:33; Admin Dose 25 MG; Start 04/30/16 at 18:30 Docusate Sodium (Colace) 250 mg DAILY PO Last administered on 05/01/16 08:33; Admin Dose 250 MG; Start 05/01/16 at 09:00 Simethicone (Mylicon) 80 mg Q6H PRN PO DISTENSION/GAS/BLOATING; Start 04/30/16 at 18:30 JAMILAH FERRO MD May 01, 2016 16:48
--- NOTE | 2016-05-01 16:51 | PDOCDIS ---
Discharge Instructions CONDITION Patient Condition: Good HOME CARE INSTRUCTIONS: Special Diet: Soft diet and advance as tolerated ACTIVITY: Activity Restrictions: Slowly Increase Activity Rest between Activity Avoid heavy lifting Avoid Heavy Housework (Light activity 4 weeks) FOLLOW UP/APPOINTMENTS Appointments Follow up with OB/ [facility] Dr. Frias in 1 week ( have her call his office ) Follow-up with primary care physician as outpatient CITLALLI LAI MD May 01, 2016 16:51
[2016-05-01] MEDS ORDERED: CHLO10CA6 PO (16:58)
[2016-05-01] MEDS ORDERED: FOL8 PO (16:58)
[2016-05-01] MEDS ORDERED: BENA20TA48 PO (16:58)
[2016-05-01] MEDS ORDERED: ONDA-43 PO (16:58)
[2016-05-01] MEDS ORDERED: DOCU250C58 PO (16:58)
[2016-05-01] MEDS ORDERED: MULTI PO (16:58)
[2016-05-01] MEDS ORDERED: THIA100T10 PO (16:58)
[2016-05-01] MEDS ORDERED: CALC-277 PO (16:58)
[2016-05-01] MEDS ORDERED: MYL80 PO (16:58)
[2016-05-01] MEDS ORDERED: LORA-441 PO (16:58)
[2016-05-01] MEDS ORDERED: METO-448 PO (16:59)
--- NOTE | 2016-05-01 17:10 | PN ---
Date/Time of Note Date/Time of Note DATE: 05/01/16 TIME: 17:09 Assessment/Plan VTE Prophylaxis VTE Prophylaxis Intervention: SCD's Lines/Catheters IV Catheter Type (from Nrs): Saline Lock Urinary Cath still in place: Yes Reason Cath still needed: urinary retention Assessment/Plan Chief Complaint/Hosp Course Chief Complaint/Hosp Course 1. Cervical cancer status post laparoscopic hysterectomy with bilateral salpingo -oophorectomy Continue postsurgical care 2. History of hypertension BP Low, hold home Rx, continue to monitor 3. AMS 2/2 EtOH withdrawl Continue banana bag, Ativan PRN 4. SIRS 2/2 EtOH withdrawl vs infection Blood Cx x 2 KUB is nl, Ucx is negative Likely reactive secondary to alcohol withdrawal 5. Microcytic anemia, likely secondary to history of alcoholism Continue to monitor, patient is on banana bag, will transfuse PRBC if hemoglobin is less than 7.5 6. Electrolyte imbalance Repleted, Prophylaxis: Sequential compression devices. Problems: Subjective 24 Hr Interval Summary Free Text/Dictation Patient denies any chest pain or shortness of breath Tolerating oral full liquid diet No nausea vomiting diarrhea Exam/Review of Systems Vital Signs Vitals Vital Signs Date Time Temp Pulse Resp B/P Pulse Ox O2 Delivery O2 Flow Rate FiO2 05/01/16 16:28 85 159/77 05/01/16 16:13 98.4 18 99 05/01/16 08:00 Nasal Cannula 2.0 Intake and Output 04/30/16 04/30/16 05/01/16 15:00 23:00 07:00 Intake Total 430 ml 720 ml 480 ml Output Total 1100 ml 800 ml Balance 430 ml -380 ml -320 ml Exam General: The patient is well-developed, Not in acute distress. HEENT: Atraumatic, normocephalic. The pupils are equal and round . Neck: Supple with full range of motion. Chest: Normal expansion of the thorax during inspiration Lungs: Clear to auscultation bilaterally Heart: Normal S1-S2, Regular rhythm and rate. Abdomen: Soft , nontender, nondistended , bowel sounds are present. Surgical site is dry and clean Extremities: Normal to inspection, no edema no cyanosis Neurologic: Normal mental status,The patient is awake, alert and oriented . Results Result Diagram: 05/01/1693505/01/16935 Results 24 hrs Laboratory Tests Test 2/22/17 09:36 Anion Gap 14 Basophils # 0.0 Basophils % 0.0 Blood Morphology Comment Blood Urea Nitrogen 6 L Calcium Level 8.3 L Carbon Dioxide Level 23 Chloride Level 104 Creatinine 0.51 Eosinophils # 0.2 Eosinophils % 1.7 Glucose Level 122 Hematocrit 37.8 Hemoglobin 12.6 Lymphocytes # 1.3 Lymphocytes % 12.2 L Magnesium Level 1.5 L Mean Corpuscular Hemoglobin 31.7 Mean Corpuscular Hemoglobin Concent 33.4 Mean Corpuscular Volume 94.7 Mean Platelet Volume 10.7 H Monocytes # 0.2 L Monocytes % 1.9 Neutrophils # 9.2 H Neutrophils % 84.2 H Nucleated Red Blood Cells # 0.0 Nucleated Red Blood Cells % 0.0 Platelet Count 228 # Potassium Level 3.8 Red Blood Count 3.99 L Red Cell Distribution Width 15.7 H Sodium Level 137 White Blood Count 10.9 H Medications Medications Current Medications Potassium Cl/ Dextrose/Lact Ringer's (D5-Lr + KCl 20 Meq) 1,000 ml @ 50 mls/hr Q20H IV Last administered on 05/01/16 04:40; Admin Dose 50 MLS/HR; Start 04/26 at 13:30 Quetiapine Fumarate (Seroquel) 100 mg DAILY PO Last administered on 04/29/16 08:10; Admin Dose 100 MG; Start 04/27/16 at 09:00; Status Future Hold Diphenhydramine HCl (Benadryl) 25 mg Q4H PRN IV PRURITUS Last administered on 04:09; Admin Dose 25 MG; Start 04/26/16 at 23:30 Ondansetron HCl (Zofran Inj) 4 mg Q6H PRN IV NAUSEA AND/OR VOMITING; Start at 23:30 Acetaminophen 650 mg 650 mg Q6H PRN PO PAIN AND OR ELEVATED TEMP Last administered on 04/30/16 20:49; Admin Dose 650 MG; Start 04/27/16 at 13:00 Multivitamins/ Thiamine HCl/ Folic Acid/Sodium Chloride (Mvi-12 Adult/ Vitamin B1/Folic Acid/NS) 1,011.2 ml @ 60 mls/hr DAILY@09 IVPB Last administered on 10:39; Admin Dose 60 MLS/HR; Start 04/27/16 at 15:00 Hydralazine HCl (Apresoline) 10 mg Q4H PRN IV SBP > 160 Last administered on 04:40; Admin Dose 10 MG; Start 04/28/16 at 05:30 Magnesium Hydroxide (Milk Of Mag) 30 ml DAILY PRN PO CONSTIPATION; Start at 07:00 Lorazepam (Ativan) 1 mg Q2H PRN IV ANXIETY Last administered on 04/29/16 06:53 ; Admin Dose 1 MG; Start 04/28/16 at 09:00 Calcium/Vitamin D (Oyster Shell/ Vit-D (500/200)) 1 tab BID PO Last administered on 05/01/16 08:32; Admin Dose 1 TAB; Start 04/29/16 at 11:00 Hydralazine HCl (Apresoline) 25 mg BID PO Last administered on 05/01/16 08:33 ; Admin Dose 25 MG; Start 04/30/16 at 21:00 Benazepril HCl (Lotensin) 20 mg DAILY PO Last administered on 05/01/16 08:33; Admin Dose 20 MG; Start 04/30/16 at 18:30 Hydrochlorothiazide (Hydrochlorothiazide) 25 mg DAILY PO Last administered on 08:33; Admin Dose 25 MG; Start 04/30/16 at 18:30 Docusate Sodium (Colace) 250 mg DAILY PO Last administered on 05/01/16 08:33; Admin Dose 250 MG; Start 05/01/16 at 09:00 Simethicone (Mylicon) 80 mg Q6H PRN PO DISTENSION/GAS/BLOATING; Start 04/30/16 at 18:30 Acetaminophen/ Hydrocodone Bitart ([place] (5/325)) 1 tab Q6H PRN PO MODERATE PAIN LEVEL 4-6; Start 05/01/16 at 17:00 CITLALLI LAI MD May 01, 2016 17:10
[2016-05-01] MEDS: HYDROCODONE/APAP (5/325) TAB PO PRN (20:29)
[2016-05-02] VITALS (14 sets, daily range): BP systolic 149–178; BP diastolic 62–84; PULSE 75–106; RESP 16–80
[2016-05-02] MEDS: D5-LR + KCL 20 MEQ 1,000 ML IV SCH (03:14)
[2016-05-02] MEDS: hydrALAzine 20 MG INJ IV PRN ×2 (05:21→11:24)
[2016-05-02] MEDS: MULTIVITAMINS 10 ML, THIAMINE 100 MG, FOLIC ACID 1 MG in SOD CHLORIDE 0.9% 1,000 ML IVPB SCH (09:00)
[2016-05-02] MEDS: HYDROCHLOROTHIAZIDE 25 MG TAB PO SCH (09:10)
[2016-05-02] MEDS: BENAZEPRIL 20 MG TAB PO SCH (09:11)
[2016-05-02] MEDS: DOCUSATE SODIUM 250 MG CAP PO SCH (09:11)
[2016-05-02] MEDS: CALCIUM/VITAMIN D (500/200) TAB PO SCH ×2 (09:11→21:07)
[2016-05-02 10:10] LABS: BASOPHIL # 0.1 10^3/ul (0.0-0.1); BASOPHILS % 0.5 % (0.0-2.0); EOSINOPHILS # 0.2 10^3/ul (0.0-0.5); EOSINOPHILS % 1.2 % (0.0-7.0); HEMATOCRIT 39.8 % (37.0-47.0); HEMOGLOBIN 13.4 g/dl (12.0-16.0); LYMPHOCYTES # 1.8 10^3/ul (0.8-2.9); LYMPHOCYTES % 13.7 % (15.0-51.0); MEAN CORPUSCULAR HEMOGLOBIN 31.5 pg (29.0-33.0); MEAN CORPUSCULAR HGB CONC 33.7 g/dl (32.0-37.0); MEAN CORPUSCULAR VOLUME 93.4 fl (82.0-101.0); MEAN PLATELET VOLUME 12.1 fl (7.4-10.4); MONOCYTE # 1.1 10^3/ul (0.3-0.9); MONOCYTES % 8.1 % (0.0-11.0); NEUTROPHIL # 9.9 10^3/ul (1.6-7.5); NEUTROPHILS % 75.9 % (39.0-77.0); PLATELET COUNT 276 10^3/UL (140-415); RED BLOOD COUNT 4.26 10^6/ul (4.20-5.40); RED CELL DISTRIBUTION WIDTH 14.3 % (11.5-14.5)
[2016-05-02 10:21] LABS: POTASSIUM 4.2 mmol/L (3.5-5.1)
[2016-05-02 10:23] LABS: CREATININE 0.52 mg/dl (0.44-1.00)
[2016-05-02 10:24] LABS: MAGNESIUM 1.4 mg/dl (1.7-2.5)
[2016-05-02] MEDS: HYDROCODONE/APAP (5/325) TAB PO PRN ×2 (11:24→21:15)
[2016-05-02] MEDS ORDERED: METOPROLOL 25 MG TAB PO ONE (16:00)
[2016-05-02] MEDS ORDERED: BENAZEPRIL 10 MG TAB PO ONE ×2 (16:00→18:02)
--- NOTE | 2016-05-02 16:27 | DS ---
DATE OF ADMISSION: 04/26/2016 DATE OF DISCHARGE: 05/02/2016 ADMITTING PHYSICIAN: Estuardo Glynn MD. FINAL DIAGNOSES: 1. Cervical cancer status post laparoscopic hysterectomy, bilateral salpingo-oophorectomy. 2. Essential hypertension. 3. Alcohol withdrawal. 4. Systemic inflammatory response syndrome secondary to alcohol withdrawal. 5. Microcytic anemia. 6. ____imbalance. 7. Gastroesophageal reflux disease. MEDICATIONS: 1. Keflex 500 mg 2. Librium 10 mg 3. Ativan 0.5 mg. 4. Benazepril 20 mg. 5. Tums. 6. Colace 100 mg. 7. Folic acid 0.8 mg. 8. Tylenol 100 mg. 9. Multiple vitamins 1 tab. 10. Zofran 4 mg. 11. Simethicone 80 mg 12. Metoprolol 25 mg. ALLERGIES: NO KNOWN DRUG ALLERGIES. HOSPITAL COURSE: This is a 66-year-old female with past medical history of hypertension, arthritis and alcoholism who was diagnosed with cervical cancer and was admitted by Dr. Estuardo Glynn for stephy ctive laparoscopic hysterectomy and bilateral salpingo-oophorectomy. After signing consent, the pat ient was taken to OR and we proceeded with surgical intervention. The patient tolerated the procedu re well, although unfortunately patient had an episode of altered mental status in which it was foun d that patient went through alcohol withdrawal. The patient was started on banana bag, Ativan and c ontinued on medical management. The patient was transferred to ICU. The patient was found to have es sential hypertension. Blood pressure continued to be elevated, and the patient's blood pressure was adjusted and was placed on metoprolol and benazepril, also placed on p.r.n. The patient was seen a nd evaluated by Dr. Glynn and has been cleared from his standpoint for discharge. This morning, the patient's vitals were found to be mildly elevated blood pressure 161/77. The patient was placed on p.r.n. hydralazine. The patient does not seem anxious. The rest of the vitals were temperature 97.9, pulse 80, respiration 18, blood pressure 161/77, oxygen saturation 96% on room air. The morgan ent has been placed on metoprolol at time of discharge. The patient is medically stable to be disch arged home with a close followup with primary care physician and FINAL [facility]URE TESTER surgery as outpatient. Dictated By: CITLALLI HERRERA/NTS Conf#: [id number] DID#: [id number]
--- NOTE | 2016-05-02 18:47 | PN ---
Date/Time of Note Date/Time of Note DATE: 05/02/16 TIME: 18:45 Assessment/Plan VTE Prophylaxis VTE Prophylaxis Intervention: SCD's Lines/Catheters IV Catheter Type (from Nrs): Peripheral IV Urinary Cath still in place: Yes Assessment/Plan Chief Complaint/Hosp Course Cervical cancer IB2 Problems: Assessment/Plan A- improved other than HTN. P- Discharge with [facility] bladder training when IM OK with HTN and medical status ; today or a.m. per IM. Subjective 24 Hr Interval Summary Free Text/Dictation S- Comfortable and quite alert and tolerated diet well. Somewhat weak but actually OOB more O- Resp- clear CVS- NSR Abd- Soft mild distension and minimal discomfort Ext- NT minimal edema A- improved other than HTN. P- Discharge with [facility] bladder training when IM OK with HTN and medical status ; today or a.m. per IM. Exam/Review of Systems Vital Signs Vitals Vital Signs Date Time Temp Pulse Resp B/P Pulse Ox O2 Delivery O2 Flow Rate FiO2 05/02/16 18:00 149/72 166/62 05/02/16 17:52 3.0 05/02/16 16:13 106 05/02/16 15:00 98.2 20 94 05/01/16 20:00 Nasal Cannula Intake and Output 05/01/16 05/01/16 05/02/16 15:00 23:00 07:00 Intake Total 850 ml 1350 ml Output Total 1200 ml 1400 ml Balance -350 ml -50 ml Results Result Diagram: 05/02/16 0940 05/02/16 0945 Results 24 hrs Laboratory Tests Test 05/02/16 09:40 05/02/16 09:45 Basophils # 0.1 Basophils % 0.5 Eosinophils # 0.2 Eosinophils % 1.2 Hematocrit 39.8 Hemoglobin 13.4 Lymphocytes # 1.8 Lymphocytes % 13.7 L Mean Corpuscular Hemoglobin 31.5 Mean Corpuscular Hemoglobin Concent 33.7 Mean Corpuscular Volume 93.4 Mean Platelet Volume 12.1 H Monocytes # 1.1 H Monocytes % 8.1 Neutrophils # 9.9 H Neutrophils % 75.9 Nucleated Red Blood Cells # 0.0 Nucleated Red Blood Cells % 0.0 Platelet Count 276 Red Blood Count 4.26 Red Cell Distribution Width 14.3 White Blood Count 13.0 H Anion Gap 16 Blood Urea Nitrogen 6 L Calcium Level 9.0 Carbon Dioxide Level 23 Chloride Level 103 Creatinine 0.52 Glucose Level 118 Magnesium Level 1.4 L Potassium Level 4.2 Sodium Level 138 Medications Medications Current Medications Quetiapine Fumarate (Seroquel) 100 mg DAILY PO Last administered on 04/29/16 08:10; Admin Dose 100 MG; Start 04/27/16 at 09:00; Status Future Hold Diphenhydramine HCl (Benadryl) 25 mg Q4H PRN IV PRURITUS Last administered on 04:09; Admin Dose 25 MG; Start 04/26/16 at 23:30 Ondansetron HCl (Zofran Inj) 4 mg Q6H PRN IV NAUSEA AND/OR VOMITING; Start at 23:30 Acetaminophen 650 mg 650 mg Q6H PRN PO PAIN AND OR ELEVATED TEMP Last administered on 04/30/16 20:49; Admin Dose 650 MG; Start 04/27/16 at 13:00 Multivitamins/ Thiamine HCl/ Folic Acid/Sodium Chloride (Mvi-12 Adult/ Vitamin B1/Folic Acid/NS) 1,011.2 ml @ 60 mls/hr DAILY@09 IVPB Last administered on 10:39; Admin Dose 60 MLS/HR; Start 04/27/16 at 15:00 Hydralazine HCl (Apresoline) 10 mg Q4H PRN IV SBP > 160 Last administered on 11:24; Admin Dose 10 MG; Start 04/28/16 at 05:30 Magnesium Hydroxide (Milk Of Mag) 30 ml DAILY PRN PO CONSTIPATION; Start at 07:00 Lorazepam (Ativan) 1 mg Q2H PRN IV ANXIETY Last administered on 04/29/16 06:53 ; Admin Dose 1 MG; Start 04/28/16 at 09:00 Calcium/Vitamin D (Oyster Shell/ Vit-D (500/200)) 1 tab BID PO Last administered on 05/02/16 09:11; Admin Dose 1 TAB; Start 04/29/16 at 11:00 Benazepril HCl (Lotensin) 20 mg DAILY PO Last administered on 05/02/16 09:11; Admin Dose 20 MG; Start 04/30/16 at 18:30 Hydrochlorothiazide (Hydrochlorothiazide) 25 mg DAILY PO Last administered on 09:10; Admin Dose 25 MG; Start 04/30/16 at 18:30 Docusate Sodium (Colace) 250 mg DAILY PO Last administered on 05/02/16 09:11; Admin Dose 250 MG; Start 05/01/16 at 09:00 Simethicone (Mylicon) 80 mg Q6H PRN PO DISTENSION/GAS/BLOATING; Start 04/30/16 at 18:30 Acetaminophen/ Hydrocodone Bitart ([place] (5/325)) 1 tab Q6H PRN PO MODERATE PAIN LEVEL 4-6 Last administered on 05/02/16 11:24; Admin Dose 1 TAB; Start at 17:00 Hydralazine HCl (Apresoline) 50 mg BID PO ; Start 05/02/16 at 21:00 Metoprolol Tartrate (Lopressor) 25 mg DAILY PO ; Start 05/03/16 at 09:00 JAMILAH FERRO MD May 02, 2016 18:47
[2016-05-02] MEDS ORDERED: hydrALAzine 20 MG INJ IV ONE (21:00)
[2016-05-03 00:45] VITALS: BP 148/61; RESP 18
[2016-05-03 01:30] VITALS: PULSE 80
[2016-05-03 04:12] VITALS: BP 131/68; RESP 16
[2016-05-03 04:37] VITALS: PULSE 79
[2016-05-03] MEDS: HYDROCODONE/APAP (5/325) TAB PO PRN (05:58)
[2016-05-03 08:12] VITALS: PULSE 81
[2016-05-03] MEDS: CALCIUM/VITAMIN D (500/200) TAB PO SCH (08:32)
[2016-05-03] MEDS: BENAZEPRIL 20 MG TAB PO SCH (08:32)
[2016-05-03] MEDS: DOCUSATE SODIUM 250 MG CAP PO SCH (08:33)
[2016-05-03] MEDS: HYDROCHLOROTHIAZIDE 25 MG TAB PO SCH (08:33)
[2016-05-03] MEDS: MULTIVITAMINS 10 ML, THIAMINE 100 MG, FOLIC ACID 1 MG in SOD CHLORIDE 0.9% 1,000 ML IVPB SCH (09:00)
[2016-05-03] MEDS ORDERED: METOPROLOL 25 MG TAB PO SCH (09:00)
--- NOTE | 2016-05-03 09:51 | DS ---
Date/Time of Note Date/Time of Note DATE: 05/03/16 TIME: 09:49 Discharge Summary Admission/Discharge Info Admit Date/Time Apr 26, 2016 at 06:04 Discharge Date/Time 05/03/16 Final Diagnosis 1. Cervical cancer status post laparoscopic hysterectomy, bilateral salpingo- oophorectomy. 2. Essential hypertension. 3. Alcohol withdrawal. 4. Systemic inflammatory response syndrome secondary to alcohol withdrawal. 5. Microcytic anemia. 6. Electrolyte imbalance. 7. Gastroesophageal reflux disease. Patient Condition: Good Hx of Present Illness Estuardo Glynn M.D. [facility] History and Physical Examination Adry Elkins Apr 25, 2016 Age:65 :1950 Physicians: Orbitread Operator Computer Tester: Referring MD:Edgar Katz Patient is a 65 year old with 2 mo bleeding and now dischargewho has a cervical biopsy consistent with a cervical cancer. Past Medical History: HTN,Arthritis Surgical:Back Surgery Last Mammogram: 03/23/2016 Last Pap Smear: 03/11/2016 G 6 P 4 Ab 2 x 4 Medications: 04/15/16 aspirin 81 mg tablet,delayed release 1 tablet by mouth DAILY; stopped 2 wk ago 04/15/16 benazepril 20 mg-hydrochlorothiazide 25 mg tablet 1 tablet by mouth DAILY 04/15/16 clonidine HCl 0.1 mg tablet 1 tablet by mouth DAILY 04/15/16 losartan 25 mg tablet 1 tablet by mouth DAILY Flu no, declined, Pneumococcal no, declined Colonoscopy: never Allergies: No active allergies recorded Family History: Noncontributory Social History: Noncontributory Review of Systems: Negative except for above noted Physical Examination Vitals (04/15/2016): Weight 134, Height 62, BP 148/70, BMI 24.5. General: Alert. HEENT: Pupils are equal, round, reactive to light and accommodation. Neck: Supple with no masses of lymphadenopathy. Breast: Deferred due to recent examination and responsibility of primary care physician. Chest: Clear to auscultation and percussion with no rales, ronchi, or wheeze. Heart: Normal rhythm with no murmur. Abdominal exam: nontender, nondistended, no masses, no ascites. Pelvic exam: cervix 3 cm friable with no parametrial nodularity, no masses or cul-de-sac nodularity noted and no vaginal lesion Rectal: confirmatory with pelvic exam. Neurological: Grossly intact Assessment: Cervical cancer clinically stage IB2 Plan: Plan: Laparoscopic hysterectomy type 3 with BSO, pelvic and aortic LND. All risks and benefits of this procedure have been discussed in detail with the patient, as well as alternative treatment strategies and their implications. The patient is aware that there is some possibility of a blood transfusion and its associated risks and benefits. She wishes to proceed and gives her informed consent. Estuardo Glynn M.D. Hospital Course This addendum for discharge summary which was done by me on 05/02/2016 Patient discharge was held secondary to patient was found to have elevated blood pressure. Patient was placed on metoprolol with addition of her other blood pressure medications. This morning patient has been able to tolerate oral intake without any difficulty. She has been able to ambulate with minimal assist. Her blood pressure and the rest of the vitals are stable she is afebrile. Patient has been clear a surgical standpoint for discharge. Physical examination General: The patient is well-developed, Not in acute distress. HEENT: Atraumatic, normocephalic. The pupils are equal and round . Lungs: Clear to auscultation bilaterally Heart: Normal S1-S2, Regular rhythm and rate. Abdomen: Soft , nontender, nondistended , bowel sounds are present. Surgical site is dry and clean Extremities: Normal to inspection, no edema no cyanosis Neurologic: Normal mental status,The patient is awake, alert and oriented . At this time patient is medically stable to be discharged home with a close follow-up with LINUX SYSTEMS ENGINEER and her primary care physician. Alcohol cessation was recommended Home Meds Active Scripts Metoprolol Tartrate* (Lopressor*) 25 Mg Tab, 25 MG PO BID, #60 TAB Prov:CITLALLI LAI MD 05/01/16 Simethicone* (Mylicon*) 80 Mg Tab, 80 MG PO Q6H Y for DISTENSION/GAS/BLOATING, # 30 TAB Prov:CITLALLI LAI MD 05/01/16 Ondansetron Hcl* (Zofran*) 4 Mg Tab, 4 MG PO Q4H Y for NAUSEA AND OR VOMITING, # 20 TAB Prov:CITLALLI LAI MD 05/01/16 Chlordiazepoxide* (Chlordiazepoxide*) 10 Mg Capsule, 10 MG PO TID, #15 CAP Prov:CITLALLI LAI MD 05/01/16 Lorazepam* (Ativan*) 0.5 Mg Tablet, 0.5 MG PO BID Y for AGITATION/ANXIETY, #15 TAB Prov:CITLALLI LAI MD 05/01/16 Multivitamins* (Theragran*) 1 Tab Tab, 1 TAB PO DAILY, #30 TAB Prov:CITLALLI LAI MD 05/01/16 Thiamine* (Thiamine*) 100 Mg Tablet, 100 MG PO DAILY, #30 TAB Prov:CITLALLI LAI MD 05/01/16 Folic Acid* (Folic Acid*) 0.8 Mg Tablet, 0.8 MG PO DAILY, #30 TAB Prov:CITLALLI LAI MD 05/01/16 Docusate Sodium* (Colace*) 250 Mg Capsule, 100 MG PO DAILY Y for CONSTIPATION, # 30 CAP Prov:CITLALLI LAI MD 05/01/16 Calcium Carbonate/Vitamin D3 (OYSTER SHELL 500 MG + VIT D TB) 1 Each Tablet, 1 TAB PO BID, #60 TAB Prov:CITLALLI LAI MD 05/01/16 Benazepril Hcl* (Benazepril Hcl*) 20 Mg Tablet, 20 MG PO DAILY, #30 TAB Prov:CITLALLI LAI MD 05/01/16 Reported Medications Gabapentin (GABAPENTIN) 300 Mg/6 Ml Solution, 300 MG PO DAILY 04/30/16 Hydrocodone/Acetaminophen ([place] 5-325 Tablet) 1 Each Tablet, 1 EACH PO, TAB 04/26/16 Quetiapine Fumarate* (Seroquel*) 100 Mg Tablet, 100 MG PO DAILY, #30 TAB 04/26/16 Discontinued Reported Medications Losartan-Hydrochlorothiazide (Losartan-HCTZ) 100-25 Mg Tab, 1 TAB PO DAILY, TAB 04/30/16 Sulfamethoxazole-Trimethoprim* (Bactrim* DS) 800-160 Mg Tab, 1 TAB PO DAILY, # 10 TAB 04/26/16 Clonidine HCl (Clonidine HCl ER) 0.1 Mg Tab.er.12h, 0.1 MG PO QHS, #30 TAB 04/26/16 Carisoprodol* (Carisoprodol*) 350 Mg Tablet, 350 MG PO Q8 Y for MUSCLE SPASMS, TAB 12/26/14 Aspirin* (Aspirin* EC) 81 Mg Tablet.dr, 81 MG PO DAILY, TAB 12/26/14 Hydrochlorothiazide* (Hydrochlorothiazide*) 25 Mg Tab, 25 MG PO DAILY, TAB 12/26/14 Benazepril Hcl* (Benazepril Hcl*) 10 Mg Tablet, 10 MG PO DAILY, TAB 12/26/14 CITLALLI LAI MD May 03, 2016 09:51
== END 2016-05-03 11:00 | disposition home or self-care (01) | DRG 740 ==
LOC: REC 06:04 → MS1 14:00 → ICU 04-27 03:54 → MS4 04-29 17:23
PROC: 0UTC4ZZ Resection of Cervix, Percutaneous Endoscopic Approach (ICD-10-PCS; 2016-04-26)
PROC: 0UT24ZZ Resection of Bilateral Ovaries, Percutaneous Endoscopic Approach (ICD-10-PCS; 2016-04-26)
PROC: 0UB74ZZ Excision of Bilateral Fallopian Tubes, Percutaneous Endoscopic Approach (ICD-10-PCS; 2016-04-26)
PROC: 07BC4ZX Excision of Pelvis Lymphatic, Percutaneous Endoscopic Approach, Diagnostic (ICD-10-PCS; 2016-04-26)
PROC: 07BD4ZX Excision of Aortic Lymphatic, Percutaneous Endoscopic Approach, Diagnostic (ICD-10-PCS; 2016-04-26)
PROC: 07BH4ZX Excision of Right Inguinal Lymphatic, Percutaneous Endoscopic Approach, Diagnostic (ICD-10-PCS; 2016-04-26)
PROC: 0UT94ZZ Resection of Uterus, Percutaneous Endoscopic Approach (ICD-10-PCS; principal; 2016-04-26 08:00)
DX: C53.9 Malignant neoplasm of cervix uteri, unspecified (principal); R65.10 Systemic inflammatory response syndrome (SIRS) of non-infectious origin without acute organ dysfunction; I95.9 Hypotension, unspecified; F10.239 Alcohol dependence with withdrawal, unspecified; I10 Essential (primary) hypertension; D50.8 Other iron deficiency anemias; K21.9 Gastro-esophageal reflux disease without esophagitis
CPT/HCPCS: 36430; 36600; 71010; 74000; 80048; 80053; 82803; 83735; 84100; 85025; 85610; 86850; 86900; 86901; 86920; 87040; 87081; 87086; 88307; 88309; 88341; 88342; 90686; J1940; J0360; J0690; J1100; J1170; J1200; J1644; J1885; J2060; J2250; J2270; J2274; J2310; J2370; J2405; J2765; J2795; J3010; J3411; J3475; J3480; J7030; J7040; P9016; P9059